=== PATIENT | female | born 1980 | race African-American/Black ===

== ENCOUNTER 2017-04-11 19:28 | Day surgery (SDC) | payer BC, MEDICAID ==
[2017-04-11] MEDS ORDERED: KETOROLAC TROMETHAMINE INJ/PF 30 MG/1 ML SDV IV ONE (19:38)
[2017-04-11] MEDS ORDERED: NORMAL SALINE 1000 ML 1,000 ML IV ONE (19:38)
--- NOTE | 2017-04-11 19:46 | ER Document Report ---
ED Medical Screen (RME) - General Chief Complaint: Flank Pain Stated Complaint: FLANK PAIN Time Seen by Provider: 04/11/17 19:35 TRAVEL OUTSIDE OF THE [place] IN LAST 30 DAYS: No - HPI Patient complains to provider of: Abdominal pain vomiting diarrhea at 2 PM - Related Data Allergies/Adverse Reactions: iodine Allergy (Verified 04/11/17 19:32) Past Medical History - Past Medical History Cardiac Medical History: Denies: Hx Congestive Heart Failure, Hx DVT, Hx Heart Attack, Hx Hypercholesterolemia, Hx Hypertension, Hx Pulmonary Embolism Pulmonary Medical History: Denies: Hx Asthma, Hx COPD Neurological Medical History: Denies: Hx Seizures Endocrine Medical History: Denies: Hx Diabetes Mellitus Type 1, Hx Diabetes Mellitus Type 2, Hx Hyperthyroidism, Hx Hypothyroidism Renal/ Medical History: Reports: Hx Kidney Stones. Denies: Hx Peritoneal Dialysis GI Medical History: Denies: Hx Cirrhosis, Hx Gastroesophageal Reflux Disease, Hx Hepatitis Musculoskeltal Medical History: Reports Hx Arthritis Psychiatric Medical History: Denies: Hx Depression Infectious Medical History: Denies: Hx Hepatitis Past Surgical History: Reports: Hx Tubal Ligation - Subsequent reversal of same. - Immunizations Hx Diphtheria, Pertussis, Tetanus Vaccination: No Review of Systems - Review of Systems Gastrointestinal: Abdominal pain, Nausea, Vomiting Physical Exam - Vital signs Vitals: Temp Pulse Resp BP Pulse Ox 98.1 F 90 22 H 158/71 H 96 04/11/17 19:33 04/11/17 19:33 04/11/17 19:33 04/11/17 19:33 04/11/17 19:33 - Cardiovascular Rhythm: Regular Heart sounds: Normal auscultation Course - Vital Signs Vital signs: Temp Pulse Resp BP Pulse Ox 98.1 F 90 22 H 158/71 H 96 04/11/17 19:33 04/11/17 19:33 04/11/17 19:33 04/11/17 19:33 04/11/17 19:33
[2017-04-11 20:13] LABS: APPEARANCE,URINE SLIGHTLY-CLOUDY; BILIRUBIN,URINE NEGATIVE (NEGATIVE); GLUCOSE, URINE NEGATIVE (NEGATIVE); KETONES,URINE NEGATIVE (NEGATIVE); LEUKOCYTE ESTERASE,URINE NEGATIVE (NEGATIVE); NITRITE,URINE NEGATIVE (NEGATIVE); PROTEIN,URINE NEGATIVE (NEGATIVE); URINE SPECIFIC GRAVITY 1.016
[2017-04-11 20:25] LABS: ABSOLUTE BASOPHILS # (AUTO) 0.1 10^3/uL (0.0-0.2); ABSOLUTE EOSINOPHILS # (AUTO) 0.5 10^3/uL (0.0-0.6); ABSOLUTE LYMPHOCYTES (AUTO) 3.3 10^3/uL (0.5-4.7); ABSOLUTE MONOCYTES (AUTO) 1.1 10^3/uL (0.1-1.4); ABSOLUTE NEUT (AUTO) 5.4 10^3/uL (1.7-8.2); BASOPHILS % (AUTO) 0.6 % (0-2); EOSINOPHILS % (AUTO) 4.8 % (0-6); HEMATOCRIT 35.9 % (36.0-47.0); HEMOGLOBIN 11.8 g/dL (12.0-15.5); HGB HCT DIFFERENCE -0.5; LYMPHOCYTES % (AUTO) 31.7 % (13-45); MEAN CORPUSCULAR HEMOGLOBIN 31.3 pg (27.0-33.4); MEAN CORPUSCULAR HGB CONC 32.9 g/dL (32.0-36.0); MEAN CORPUSCULAR VOLUME 95 fl (80-97); MONOCYTES % (AUTO) 10.3 % (3-13); RED BLOOD COUNT 3.78 10^6/uL (3.72-5.28); RED CELL DISTRIBUTION WIDTH 13.4 % (11.5-14.0); SEGMENTED NEUTROPHILS % (AUTO) 52.6 % (42-78); WHITE BLOOD COUNT 10.3 10^3/uL (4.0-10.5)
[2017-04-11 20:34] LABS: BACTERIA,URINE 4+ /HPF; TRICHOMONAS,URINE PRESENT
[2017-04-11 20:41] LABS: ALANINE AMINOTRANSFERASE 15 U/L (9-52); ALBUMIN 3.7 g/dL (3.5-5.0); ALKALINE PHOSPHATASE 58 U/L (38-126); ANION GAP 10 (5-19); ASPARTATE AMINO TRANSFERASE 20 U/L (14-36); BILIRUBIN,DIRECT 0.2 mg/dL (0.0-0.4); BILIRUBIN,TOTAL 0.3 mg/dL (0.2-1.3); BLOOD UREA NITROGEN 9 mg/dL (7-20); CALCIUM 8.9 mg/dL (8.4-10.2); CARBON DIOXIDE 22 mmol/L (22-30); CHLORIDE 104 mmol/L (98-107); CREATININE RESULT 0.64 mg/dL (0.52-1.25); GLUCOSE 155 mg/dL (75-110); LIPASE 53.8 U/L (23-300); POTASSIUM 3.7 mmol/L (3.6-5.0); SODIUM 135.8 mmol/L (137-145)
--- NOTE | 2017-04-11 20:57 | ER Document Report ---
ED General - General Chief Complaint: Flank Pain Stated Complaint: FLANK PAIN Time Seen by Provider: 04/11/17 19:35 Mode of Arrival: Ambulatory Information source: Patient, POA - Power of Adjutant General Notes: 36-year-old female history of kidney stones presents with complaints of flank pain. Patient admits nausea denies any fevers or chills denies any urinary complaints. Patient notes diarrhea and right lower quadrant abdominal pain associated starting at 2 PM today TRAVEL OUTSIDE OF THE [place] IN LAST 30 DAYS: No - HPI Onset: Just prior to arrival Onset/Duration: Sudden Quality of pain: Cramping Severity: Mild Pain Level: 1 Associated symptoms: Diarrhea, Nausea, Vomiting Exacerbated by: Denies Relieved by: Denies Similar symptoms previously: No Recently seen / treated by doctor: No - Related Data Allergies/Adverse Reactions: iodine Allergy (Verified 04/11/17 19:32) Past Medical History - Social History Smoking Status: Never Smoker Cigarette use (# per day): No Chew tobacco use (# tins/day): No Smoking Education Provided: No Family History: None, DM, Hypertension - Past Medical History Cardiac Medical History: Denies: Hx Congestive Heart Failure, Hx DVT, Hx Heart Attack, Hx Hypercholesterolemia, Hx Hypertension, Hx Pulmonary Embolism Pulmonary Medical History: Denies: Hx Asthma, Hx COPD Neurological Medical History: Denies: Hx Seizures Endocrine Medical History: Denies: Hx Diabetes Mellitus Type 1, Hx Diabetes Mellitus Type 2, Hx Hyperthyroidism, Hx Hypothyroidism Renal/ Medical History: Reports: Hx Kidney Stones. Denies: Hx Peritoneal Dialysis GI Medical History: Denies: Hx Cirrhosis, Hx Gastroesophageal Reflux Disease, Hx Hepatitis Musculoskeltal Medical History: Reports Hx Arthritis Psychiatric Medical History: Denies: Hx Depression Infectious Medical History: Denies: Hx Hepatitis Past Surgical History: Reports: Hx Tubal Ligation - Immunizations Hx Diphtheria, Pertussis, Tetanus Vaccination: No Review of Systems - Review of Systems Notes: REVIEW OF SYSTEMS: CONSTITUTIONAL : Denies fever, chills, or sweats. Denies recent illness. EENT: Denies eye, ear, throat, or mouth pain or symptoms. Denies nasal or sinus congestion or discharge. Denies throat, tongue, or mouth swelling or difficulty swallowing. CARDIOVASCULAR: Denies chest pain. Denies palpitations or racing or irregular heart beat. Denies ankle edema. RESPIRATORY: Denies cough, cold, or chest congestion. Denies shortness of breath, difficulty breathing, or wheezing. GASTROINTESTINAL: Admits to abdominal pain rating from the flank to the groin GENITOURINARY: Denies difficulty urinating, painful urination, burning, frequency, blood in urine, or discharge. FEMALE GENITOURINARY: Denies vaginal bleeding, heavy or abnormal periods, irregular periods. Denies vaginal discharge or odor. MUSCULOSKELETAL: Denies back or neck pain or stiffness. Denies joint pain or swelling. SKIN: Denies rash, lesions or sores. HEMATOLOGIC : Denies easy bruising or bleeding. LYMPHATIC: Denies swollen, enlarged glands. NEUROLOGICAL: Denies confusion or altered mental status. Denies passing out or loss of consciousness. Denies dizziness or lightheadedness. Denies headache. Denies weakness or paralysis or loss of use of either side. Denies problems with gait or speech. Denies sensory loss, numbness, or tingling. Denies seizures. PSYCHIATRIC: Denies anxiety or stress. Denies depression, suicidal ideation, or homicidal ideation. ALL OTHER SYSTEMS REVIEWED AND NEGATIVE. PHYSICAL EXAMINATION: GENERAL: Well-appearing, well-nourished and in no acute distress. HEAD: Atraumatic, normocephalic. EYES: Pupils equal round and reactive to light, extraocular movements intact, conjunctiva are normal. ENT: Nares patent, oropharynx clear without exudates. Moist mucous membranes. NECK: Normal range of motion, supple without lymphadenopathy LUNGS: Breath sounds clear to auscultation bilaterally and equal. No wheezes rales or rhonchi. HEART: Regular rate and rhythm without murmurs ABDOMEN: Soft, nontender, nondistended abdomen. No guarding, no rebound. No masses appreciated. Female : deferred Musculoskeletal: Normal range of motion, no pitting or edema. No cyanosis. NEUROLOGICAL: Cranial nerves grossly intact. Normal speech, normal gait. Normal sensory, motor exams PSYCH: Normal mood, normal affect. SKIN: Warm, Dry, normal turgor, no rashes or lesions noted. Dictation was performed using Smeet recognition software Physical Exam - Vital signs Vitals: Temp Pulse Resp BP Pulse Ox 98.1 F 90 22 H 158/71 H 96 04/11/17 19:33 04/11/17 19:33 04/11/17 19:33 04/11/17 19:33 04/11/17 19:33 Course - Re-evaluation Re-evalutation: 04/11/17 20:[address] pending to rule out kidney stone versus any other life-threatening intra-abdominal abnormality 04/12/17 04:07 Lab work noted a quant of 30,000, this means the patient is actually rather than having a kidney stone. She was sent for an ultrasound and no IUP was noted. I spoke with the radiologist regarding these findings. Given these results I believe the patient is having an ectopic , I immediately called the [employer] on-call and patient is admitted to her service - Vital Signs Vital signs: Temp Pulse Resp BP Pulse Ox 98.2 F 70 18 130/82 H 98 04/12/17 01:24 04/12/17 01:24 04/12/17 01:24 04/12/17 01:24 04/12/17 01:24 - Laboratory Result Diagrams: 04/11/17 20:10 04/11/17 20:10 Laboratory results interpreted by me: 04/11/17 04/11/17 04/11/17 19:50 20:10 20:10 Hgb 11.8 L Hct 35.9 L Sodium 135.8 L Glucose 155 H Beta HCG, Quant 43175.00 H Urine Blood SMALL H Urine Urobilinogen 2.0 H Critical Care Note - Critical Care Note Total time excluding time spent on procedures (mins): 28 Comments: minutes of critical care time spent in direct contact evaluating and reevaluating the patient, treating symptoms, reviewing labs and studies and speaking with family and consultants excluding any procedures Discharge - Discharge Clinical Impression: Ectopic Qualifiers: Location of ectopic : tubal Intrauterine status: without intrauterine Qualified Code(s): O00.10 - Tubal without intrauterine Abdominal pain Qualifiers: Abdominal location: generalized Qualified Code(s): R10.84 - Generalized abdominal pain Condition: Fair Disposition: ADMITTED INPATIENT Admitting Provider: [facility] Admitted: Surgical Floor
--- NOTE | 2017-04-11 23:02 | RADIOLOGY REPORT (SQ) ---
EXAM DESCRIPTION: U/S OB TRANSVAGINAL W/O DOP COMPLETED DATE/TIME: 04/11/2017 10:41 pm REASON FOR STUDY: + preg abd pain COMPARISON: None. TECHNIQUE: Transvaginal static and realtime grayscale images acquired of the pelvis. Additional eliana cted spectral and color Doppler images recorded. All images stored on PACs. [facility]70,815 LIMITATIONS: None. FINDINGS: UTERUS: No masses. No anomalies. GESTATIONAL SAC: No intrauterine gestational sac is demonstrated. YOLK SAC: No. POLE: No. RIGHT ADNEXA: Normal ovary with normal vascular flow. No adnexal free fluid. The 2.7 x 3.0 x 3.0 cm fluid collection is seen adjacent to the right ovary ; while no yolk sac or fe martin pole is present, this is concerning for an extrauterine LEFT ADNEXA: Normal ovary with normal vascular flow. No adnexal free fluid. No adnexal masses. FREE FLUID: Moderate free fluid is demonstrated OTHER: No other significant finding. IMPRESSION: No intrauterine is demonstrated. A 2.7 x 3.0 x 3.0 cm fluid collection with a thick rim is seen adjacent to the right ovary; given quantitative HCG of 31,000, this is concerning for an extrauterine . Trimester of : First - 0 to 13 weeks. COMMENT: Pertinent findings on the imaging study reported as a CRITICAL RESULT to ANNIE INTERIANO DO at22:54 on 04/11/2017. Category of Critical Result: Possible ectopic TECHNICAL DOCUMENTATION: JOB ID: [id number] [employer]- All Rights Reserved
--- NOTE | 2017-04-12 01:46 | PDOC H&P ---
History of Present Illness Admission Date/PCP: 04/11/17 23:28 Patient complains of: abdominal pain with nausea since 1700. thouht it was kidney stones. had tubal reanastomosis in 2011. this is first since procedure. History of Present Illness: SEGUNDO CEVALLOS is a 36 year old female Past Medical History Cardiac Medical History: Denies: Congestive Heart Failure, DVT, Myocardial Infarction, Hyperlipidema, Hypertension, Pulmonary Embolism Pulmonary Medical History: Denies: Asthma, Chronic Obstructive Pulmonary Disease (COPD) Neurological Medical History: Denies: Seizures Endocrine Medical History: Denies: Diabetes Mellitus Type 1, Diabetes Mellitus Type 2, Hyperthyroidism, Hypothyroidism GI Medical History: Denies: Cirrhosis, Gastroesophageal Reflux Disease, Hepatitis Musculoskeltal Medical History: Reports: Arthritis Psychiatric Medical History: Denies: Depression Past Surgical History Past Surgical History: Reports: Tubal Ligation, Other - tubal reanastomosis Social History Information Source: Patient Lives with: Family Smoking Status: Current Every Day Smoker Cigarettes Packs Per Day: 1 Frequency of Alcohol Use: None Hx Recreational Drug Use: No Drugs: None Hx Prescription Drug Abuse: No Family History Family History: None, DM, Hypertension Parental Family History Reviewed: Yes Children Family History Reviewed: Yes Sibling(s) Family History Reviewed.: Yes Medication/Allergy Home Medications: Aspirin [Ecotrin 81 mg EC Tablet] 81 mg PO DAILY #30 tabec 08/23/16 Medroxyprogesterone Acetate [Depo-Provera] 150 mg IM 08/23/16 Allergies/Adverse Reactions: iodine Allergy (Verified 04/11/17 19:32) Review of Systems Constitutional: PRESENT: as per HPI Gastrointestinal: PRESENT: as per HPI, abdominal pain Physical Exam - Physical Exam Vital Signs: Temp Pulse Resp BP Pulse Ox 97.7 F 57 L 16 134/85 H 100 04/12/17 00:38 04/12/17 00:38 04/12/17 00:38 04/12/17 00:38 04/12/17 00:38 General appearance: PRESENT: no acute distress, cooperative GI/Abdominal exam: PRESENT: guarding, soft, tenderness Result Impressions: Obstetrics Ultrasound 04/11/17 21:28 IMPRESSION: No intrauterine is demonstrated. A 2.7 x 3.0 x 3.0 cm fluid collection with a thick rim is seen adjacent to the right ovary; given quantitative HCG of 31,000, this is concerning for an extrauterine . Trimester of : First - 0 to 13 weeks. Assessment & Plan - Diagnosis (1) Abdominal pain Qualifiers: Abdominal location: generalized Qualified Code(s): R10.84 - Generalized abdominal pain (2) Ectopic Qualifiers: Location of ectopic : tubal Intrauterine status: without intrauterine Qualified Code(s): O00.10 - Tubal without intrauterine Is this a current diagnosis for this admission?: Yes - Time Time Spent: 30 to 50 Minutes Critical Time spent with patient: Less than 15 minutes Anticipated discharge: Home Within: within 24 hours - Inpatient Certification Based on my medical assessment, after consideration of the patient's comorbidities, presenting symptoms, or acuity I expect that the services needed warrant INPATIENT care.: Yes I certify that my determination is in accordance with my understanding of Medicare's requirements for reasonable and necessary INPATIENT services [42 CFR 412.3e].: Yes Medical Necessity: Need Close Monitoring Due to Risk of Patient Decompensation, Need for Pain Control, Need for Surgery
[2017-04-12] MEDS ORDERED: MORPHINE SULFATE 10 MG/ML INJ IV ONE ×2 (02:00→06:45)
[2017-04-12] MEDS ORDERED: RINGERS SOLUTION,LACTATED 1,000 ML IV PRN (02:19)
[2017-04-12] MEDS ORDERED: CEFAZOLIN 2 GM/D5W RTU 2 GM/50 ML RTUPB IV PRN (02:20)
[2017-04-12] MEDS ORDERED: HYDROMORPHONE HCL INJ/PF 2 MG/ML AMPULE ONE (02:27)
[2017-04-12] MEDS ORDERED: ACETAMINOPHEN 100 ML IV ONE (02:28)
[2017-04-12] MEDS ORDERED: FENTANYL CITRATE INJ/PF 100 MCG/2 ML AMPUL ONE (02:28)
[2017-04-12] MEDS ORDERED: MIDAZOLAM 2 MG/2 ML INJ ONE (02:28)
[2017-04-12] MEDS ORDERED: PROPOFOL INJ 200 MG/20 ML VIAL IV ONE (02:28)
[2017-04-12] MEDS ORDERED: KETAMINE HCL INJ 500 MG/10 ML VIAL ONE (02:29)
[2017-04-12] MEDS ORDERED: DEXMEDETOMIDINE INJ 80 MCG/20 ML VIAL IV ONE (02:29)
[2017-04-12] MEDS ORDERED: FAMOTIDINE INJ/PF 20 MG/2 ML SDV IV PRN (03:07)
[2017-04-12] MEDS ORDERED: BUPIVACAINE HCL 0.25 % INJ/PF (2.5 MG/1 ML) 30 ML VIAL ONE (03:08)
[2017-04-12] MEDS ORDERED: CEFAZOLIN INJ 1 GM VIAL ONE (03:08)
[2017-04-12] MEDS ORDERED: FENTANYL CITRATE INJ/PF 100 MCG/2 ML AMPUL IV PRN ×3 (04:00)
[2017-04-12] MEDS ORDERED: DIPHENHYDRAMINE HCL 50 MG/ML VIAL IV PRN (04:00)
--- NOTE | 2017-04-12 05:19 | OPERATIVE REPORT E ---
Operative Report NAME: SEGUNDO CEVALLOS : 1980 AGE: 36Y DATE OF SURGERY: 04/12/2016 ROOM: 206 PREOPERATIVE DIAGNOSIS: Ectopic . POSTOPERATIVE DIAGNOSIS: Ectopic . SURGEON: DALTON LICONA M.D. ANESTHESIA: Dr. Clark with general. FINDINGS: Adhesions of bilateral fallopian tubes. The ectopic was obviously located in the right fallopian tube. ESTIMATED BLOOD LOSS: 20 mL. COMPLICATIONS: None. PROCEDURE: Diagnostic laparoscopy with right salpingectomy. PROCEDURE IN DETAIL: The patient was taken to the operating room, prepared and draped in a normal sterile fashion. In the dorsal lithotomy position under sterile conditions, an in-and-out catheterization was performed of approximately 10 mL of clear urine. A sterile speculum was then placed in the vagina and a Hulka clamp was placed through the cervix for uterine manipulation without difficulty. The speculum was removed and the gloves were changed. Attention was turned to the upper portion of the case. An umbilical skin incision was made with an 11 blade. This was carried through to the underlying layer of fascia with a Hemostat. The attempt to enter the peritoneal cavity with a Veress needle was unsuccessful. Therefore, a cutdown procedure was performed and the peritoneal cavity was entered sharply. A 5 mm trocar was then placed and the camera was introduced and the abdomen was insufflated with approximately 2 liters of CO2 gas. The above findings were noted. After, the patient was placed in Trendelenburg and the uterus was manipulated. Under direct visualization, a 5 mm port was placed in the left lower quadrant and an 11 mm port was placed in the right lower quadrant for instrument passing. The right fallopian tube was located and the ectopic was identified. The left fallopian tube was inspected and found to be somewhat twisted, but otherwise intact and there were some worsening adhesions around the left fallopian tube as well. The right fallopian tube was stented up with a pair of atraumatic graspers the LigaSure was introduced and at the beginning of the fimbriated end nearest the ovary, the LigaSure was used to transect the fallopian tube from the ovary and following the mesosalpinx to the uterine fundus, the fallopian tube was transected using the LigaSure until it was completely freed. The atraumatic grasper was then removed and an EndoCatch bag was placed through the 11 mm port and the specimen was then bagged in the EndoCatch using the grasper through the other port. Then the specimen was then removed without difficulty. The abdomen was inspected and suctioned, irrigated as best we could. The two lower ports were then removed under direct visualization. The abdomen was then deflated through the umbilical port without difficulty. All 3 skin incisions were then closed with 4-0 Vicryl. The patient tolerated the procedure well. Sponge, lap and needle counts were correct x2. Patient was taken to recovery in stable condition. DICTATING PHYSICIAN: DALTON LICONA M.D. [id number] PHY#: [id number] ID: [id number] JOB#: [id number] ACCT: [id number] cc:DALTON LICONA M.D. >
[2017-04-12] MEDS ORDERED: OXYCODONE-ACETAMINOPHEN 5-325 MG TABLET PO PRN (05:46)
[2017-04-12] MEDS ORDERED: IBUPROFEN 800 MG TABLET PO PRN (05:47)
[2017-04-12] MEDS ORDERED: KETOROLAC TROMETHAMINE INJ/PF 30 MG/1 ML SDV IV ONE (06:00)
[2017-04-12] MEDS ORDERED: METRONIDAZOLE 500 MG TABLET PO ONE (10:06)
--- NOTE | 2017-04-12 10:34 | PDOC PROGRESS REPORT ---
Subjective Progress Note for:: 04/12/17 Subjective:: pt doing well s/p L/S right salpinectomy. reviewed dx of trich and reviewed treatment. She is tolerating po intake and voiding w/o difficulty. Physical Exam - Physical Exam Vital Signs: Temp Pulse Resp BP Pulse Ox 97.5 F 56 L 18 134/74 H 100 04/12/17 09:30 04/12/17 09:30 04/12/17 09:30 04/12/17 09:30 04/12/17 09:30 Intake & Output 04/11/17 04/12/17 04/13/17 06:59 06:59 06:59 Intake Total 900 Output Total 40 Balance 860 General appearance: PRESENT: no acute distress, well-developed, well-nourished Head exam: PRESENT: atraumatic, normocephalic Respiratory exam: PRESENT: clear to auscultation sarita, symmetrical, unlabored Cardiovascular exam: PRESENT: RRR. ABSENT: diastolic murmur, rubs, systolic murmur GI/Abdominal exam: PRESENT: normal bowel sounds, soft, tenderness - approp ttp over trocar sites s/p surgery. ABSENT: distended, guarding, mass, organolmegaly , rebound Rectal exam: PRESENT: deferred Extremities exam: PRESENT: full ROM. ABSENT: calf tenderness, clubbing, pedal edema Neurological exam: PRESENT: alert, awake, oriented to person, oriented to place , oriented to time, oriented to situation, CN II-XII grossly intact. ABSENT: motor sensory deficit Psychiatric exam: PRESENT: agitated Skin exam: PRESENT: dry, intact, warm. ABSENT: cyanosis, rash Result Impressions: Obstetrics Ultrasound 04/11/17 21:28 IMPRESSION: No intrauterine is demonstrated. A 2.7 x 3.0 x 3.0 cm fluid collection with a thick rim is seen adjacent to the right ovary; given quantitative HCG of 31,000, this is concerning for an extrauterine . Trimester of : First - 0 to 13 weeks. Assessment & Plan - Diagnosis (1) Trichomonal cervicitis Is this a current diagnosis for this admission?: YesPlan: Trich dx reviewed with pt and . Reviewed needs to be treated and she needs in office test of cure in 4-6wks. No intercourse until after both pt and partner treated and she has a good SARAI. Rx for treatment given in hospital. WIll await GC/CT results and if pos will treat for those as well. (2) Ectopic Qualifiers: Location of ectopic : tubal Intrauterine status: without intrauterine Qualified Code(s): O00.10 - Tubal without intrauterine Is this a current diagnosis for this admission?: YesPlan: doing well s/p L/S RIght Salpingectomy. (pt had TUbal reanastomosis in 2011). She will f/u in office in 1 wks - Time Time Spent with patient: 15-24 minutes Critical Time spent with patient: Less than 15 minutes Medications reviewed and adjusted accordingly: Yes Anticipated discharge: Home Within: within 24 hours - Inpatient Certification Based on my medical assessment, after consideration of the patient's comorbidities, presenting symptoms, or acuity I expect that the services needed warrant INPATIENT care.: Yes I certify that my determination is in accordance with my understanding of Medicare's requirements for reasonable and necessary INPATIENT services [42 CFR 412.3e].: Yes Medical Necessity: Need for IV Antibiotics - once GC/CT result returns and treatment given if needed then ok to discharge Post Hospital Care: D/C Supervisor Grinding Documentation
[2017-04-12] MEDS ORDERED: NEOSTIGMINE METHYLSULFATE 10 MG/10 ML VIAL ONE (11:46)
[2017-04-12] MEDS ORDERED: GLYCOPYRROLATE INJ 0.4 MG/2 ML VIAL ONE (11:46)
[2017-04-12] MEDS ORDERED: LIDOCAINE 2% INJ-PF (20 MG/ML) 10 ML AMPUL ONE (11:46)
[2017-04-12] MEDS ORDERED: DEXAMETHASONE SOD PHOSPHATE INJ 4 MG/1 ML VIAL ONE (11:46)
[2017-04-12] MEDS ORDERED: SUCCINYLCHOLINE CHLORIDE INJ 200 MG/10 ML VIAL ONE (11:46)
[2017-04-12] MEDS ORDERED: ONDANSETRON HCL INJ/PF 4 MG/2 ML SDV ONE (11:46)
[2017-04-12] MEDS ORDERED: ROCURONIUM BROMIDE INJ 50 MG/5 ML VIAL IV ONE (11:46)
[2017-04-12 11:56] VITALS: BP 134/71
[2017-04-12 12:04] LABS: CHLAM PCR NOT DETECTED (NOT DETECT)
--- NOTE | 2017-04-12 12:59 | PDOC DISCHARGE SUMMARY ---
General - Admit/Disc Date/PCP Admission Date/Primary Care Provider: 04/11/17 23:28 Discharge Date: 04/12/17 - Discharge Diagnosis (1) Ectopic Is this a current diagnosis for this admission?: YesSummary: s/p L/S Right salpingectomy. (2) Trichomonal cervicitis Is this a current diagnosis for this admission?: YesSummary: treatment given. GC/CHlam negative. - Additional Information Resuscitation Status: Full Code Discharge Diet: As Tolerated Discharge Activity: Activity As Tolerated, No Driving, Pelvic Rest Home Medications: Doxycycline Hyclate 100 mg PO BID #28 tablet. 04/12/17 Ibuprofen [Motrin 800 mg Tablet] 800 mg PO Q8HP PRN #90 tablet 04/12/17 Oxycodone HCl/Acetaminophen [Percocet 5-325 mg Tablet] 1 tab PO Q4HP PRN #30 tablet 04/12/17 History of Present Illness Patient complains of: Pt presented to ER with pelvic pain and probable ectopic on US with h/o Bilateral Tubal REanastomosis. History of Present Illness: SEGUNDO CEVALLOS is a 36 year old female Hospital Course Hospital Course: Admitted and taken to OR for L/S removal of ectopic and Right salpingectomy. Care advanced postop and meets criteria for discharge Physical Exam - Physical Exam Vital Signs: Temp Pulse Resp BP Pulse Ox 97.5 F 56 L 18 134/74 H 100 04/12/17 09:30 04/12/17 09:30 04/12/17 09:30 04/12/17 09:30 04/12/17 09:30 Intake & Output 04/11/17 04/12/17 04/13/17 06:59 06:59 06:59 Intake Total 900 Output Total 40 Balance 860 General appearance: PRESENT: no acute distress, well-developed, well-nourished Head exam: PRESENT: atraumatic, normocephalic Respiratory exam: PRESENT: clear to auscultation sarita, symmetrical, unlabored. ABSENT: tachypnea Cardiovascular exam: PRESENT: RRR. ABSENT: diastolic murmur, rubs, systolic murmur GI/Abdominal exam: PRESENT: normal bowel sounds, soft, tenderness - approp postop ttp. ABSENT: distended, guarding, mass, organolmegaly, rebound Rectal exam: PRESENT: deferred Extremities exam: PRESENT: full ROM. ABSENT: calf tenderness, clubbing, pedal edema Neurological exam: PRESENT: alert, awake, oriented to person, oriented to place , oriented to time, oriented to situation, CN II-XII grossly intact. ABSENT: motor sensory deficit Psychiatric exam: PRESENT: appropriate affect, normal mood. ABSENT: homicidal ideation, suicidal ideation Skin exam: PRESENT: dry, intact, warm. ABSENT: cyanosis, rash Result Impressions: Obstetrics Ultrasound 04/11/17 21:28 IMPRESSION: No intrauterine is demonstrated. A 2.7 x 3.0 x 3.0 cm fluid collection with a thick rim is seen adjacent to the right ovary; given quantitative HCG of 31,000, this is concerning for an extrauterine . Trimester of : First - 0 to 13 weeks. Status: Imported from PACS Plan Discharge Plan: Discharge to home, F/u in office 1wks. Time Spent: Less than 30 Minutes
== END 2017-04-12 13:15 | disposition home or self-care (01) ==
LOC: ER 19:28 → UNDOADMIN 23:28 → EH 23:28 → 2N 04-12 00:25 → ER 04-12 02:00 → OROUT 04-12 02:00 → 2N 04-12 02:00 → OROUT 04-12 13:15 → UNDODISIN 04-12 13:15
PROVIDERS: ATTEND Obstetrics & Gynecology
PROC: 0UT54ZZ Resection of Right Fallopian Tube, Percutaneous Endoscopic Approach (ICD-10-PCS; 2017-04-12)
PROC: 10T24ZZ Resection of Products of Conception, Ectopic, Percutaneous Endoscopic Approach (ICD-10-PCS; principal; 2017-04-12 03:30)
DX: O00.10 Tubal pregnancy without intrauterine pregnancy (principal); F17.210 Nicotine dependence, cigarettes, uncomplicated; A59.09 Other urogenital trichomoniasis; M19.90 Unspecified osteoarthritis, unspecified site; E66.9 Obesity, unspecified; Z68.41 Body mass index [BMI] 40.0-44.9, adult
CPT/HCPCS: 59151; 99285; 96361; 96374; 36415; 87086; 84702; 83690; 85025; 80053; 81001; 87491; 87591; 88305 ×2; 76817; J2250; J0690; J3490 ×3; J1100; J3010; J1885 ×2; J2270; J0330; J2405; J7030; J2704; J0131; 840; J1170

== ENCOUNTER → 2017-07-03 | Outpatient (CLI) | payer BC ==
--- NOTE | 2017-07-03 16:02 | RADIOLOGY REPORT (SQ) ---
EXAM DESCRIPTION: HYSTEROSALPINGOGRAM; HYSTERO CATH/INJECTION COMPLETED DATE/TIME: 07/03/2017 3:46 pm REASON FOR STUDY: PERSONAL HISTORY OF OTHER COMPLICATIONS OF , CHILDBIRTH AND Z87.59 PERSO NAL HISTORY OF COMP OF PREG, CHLDBRTH AND THE PU COMPARISON: None. PROCEDURE: PRE-PROCEDURE: Procedure was explained to the patient. She was told to expect cramping du ring the procedure, and possible spotting post procedure. PROCEDURE: The cervix was prepped in sterile fashion. Under direct visual inspection, the cervix was cannulated with the hysterosalpingogram catheter and contrast injected. TECHNIQUE: Temporal fluoroscopic images acquired during the procedure stored to PACS. FLUOROSCOPY TIME: 26 seconds 14 images saved to PACS. LIMITATIONS: None. FINDINGS: UTERUS: No identified anomalies. No synechia. RIGHT ADNEXA: Filling of the proximal fallopian tube. No filling more distally. No free spill. LEFT ADNEXA: Filling of the proximal fallopian tube. No filling more distally. No free spill. POST PROCEDURE: The patient tolerated the procedure with no adverse effects. IMPRESSION: Bilateral occluded fallopian tubes. COMMENT: Faith Espinoza RT was present during the entire procedure. Quality ID [id number]: Final reports for procedures using fluoroscopy that document radiation exposure yohannes izabella, or exposure time and number of fluorographic images (if radiation exposure indices are not avail able) TECHNICAL DOCUMENTATION: JOB ID: [id number] [employer] [facility]- All Rights Reserved
== END ==
LOC: RAD 13:37
PROVIDERS: ATTEND Student in an Organized Health Care Education/Training Program
DX: Z87.59 Personal history of other complications of pregnancy, childbirth and the puerperium (principal)
CPT/HCPCS: 58340; 74740

== ENCOUNTER 2019-06-07 13:59 | Emergency (ER) | payer BC ==
[2019-06-07] MEDS ORDERED: ONDANSETRON HCL INJ/PF 4 MG/2 ML SDV IV ONE (14:33)
[2019-06-07] MEDS ORDERED: MORPHINE SULFATE 10 MG/ML INJ IV ONE (14:33)
[2019-06-07] MEDS ORDERED: NORMAL SALINE 1000 ML 1,000 ML IV ONE (14:33)
[2019-06-07 14:57] LABS: ABSOLUTE EOSINOPHILS # (AUTO) 0.1 10^3/uL (0.0-0.6); ABSOLUTE LYMPHOCYTES (AUTO) 2.5 10^3/uL (0.5-4.7); ABSOLUTE MONOCYTES (AUTO) 1.2 10^3/uL (0.1-1.4); ABSOLUTE NEUT (AUTO) 2.8 10^3/uL (1.7-8.2); BASOPHILS % (AUTO) 0.5 % (0-2); EOSINOPHILS % (AUTO) 1.1 % (0-6); HEMATOCRIT 37.2 % (36.0-47.0); HEMOGLOBIN 12.7 g/dL (12.0-15.5); LYMPHOCYTES % (AUTO) 37.5 % (13-45); MEAN CORPUSCULAR HGB CONC 34.2 g/dL (32.0-36.0); MEAN CORPUSCULAR VOLUME 94 fl (80-97); MONOCYTES % (AUTO) 18.8 % (3-13); PLATELET COUNT 266 10^3/uL (150-450); RED BLOOD COUNT 3.98 10^6/uL (3.72-5.28); SEGMENTED NEUTROPHILS % (AUTO) 42.1 % (42-78); TOTAL CELLS COUNTED % (AUTO) 100 %; WHITE BLOOD COUNT 6.6 10^3/uL (4.0-10.5)
--- NOTE | 2019-06-07 15:02 | ER Document Report ---
ED General - General Chief Complaint: Abdominal Pain Stated Complaint: ABDOMINAL PAIN Time Seen by Provider: 06/07/19 14:31 Primary Care Provider: LAUREN DIAZ MD [Primary Care Provider] - Follow up as needed Mode of Arrival: Ambulatory Information source: Patient TRAVEL OUTSIDE OF THE [place] IN LAST 30 DAYS: No - HPI Notes: Patient presents with approximately 4 days of right upper quadrant abdominal pain. It does radiate to her back. Nothing makes it better or worse. She has had nausea and vomiting. She has had decreased appetite. She has had no significant change of stools or urine. States she does not believe she is currently . She states she went and saw her primary care physician for this pain today and they ordered an ultrasound. She states the ultrasound showed no evidence of gallstones but she was tender so they referred her here to the emergency department. This pain does radiate to her back. It is moderate in intensity. It is an aching sensation. - Related Data Allergies/Adverse Reactions: iodine Allergy (Verified 06/07/19 14:03) Past Medical History - General Information source: Patient - Social History Smoking Status: Current Every Day Smoker Frequency of alcohol use: Occasional Drug Abuse: None Family History: None, DM, Hypertension - Past Medical History Cardiac Medical History: Denies: Hx Congestive Heart Failure, Hx DVT, Hx Heart Attack, Hx Hypercholesterolemia, Hx Hypertension, Hx Pulmonary Embolism Pulmonary Medical History: Denies: Hx Asthma, Hx COPD Neurological Medical History: Denies: Hx Seizures Endocrine Medical History: Denies: Hx Diabetes Mellitus Type 1, Hx Diabetes Mellitus Type 2, Hx Hyperthyroidism, Hx Hypothyroidism Renal/ Medical History: Reports: Hx Kidney Stones. Denies: Hx Peritoneal Dialysis GI Medical History: Denies: Hx Cirrhosis, Hx Gastroesophageal Reflux Disease, Hx Hepatitis Musculoskeletal Medical History: Reports Hx Arthritis Psychiatric Medical History: Denies: Hx Depression Infectious Medical History: Denies: Hx Hepatitis Past Surgical History: Reports: Hx Tubal Ligation, Other - tubal reanastomosis - Immunizations Hx Diphtheria, Pertussis, Tetanus Vaccination: No Review of Systems - Review of Systems Constitutional: Malaise. denies: Chills, Fever Cardiovascular: denies: Chest pain, Palpitations Respiratory: denies: Cough, Short of breath -: Yes All other systems reviewed and negative Physical Exam - Vital signs Vitals: Temp Pulse Resp BP Pulse Ox 98.6 F 85 15 141/87 H 98 06/07/19 14:04 06/07/19 14:04 06/07/19 14:04 06/07/19 14:04 06/07/19 14:04 Interpretation: Normal - General General appearance: Appears well, Alert - HEENT Head: Normocephalic, Atraumatic Eyes: Normal Pupils: PERRL - Respiratory Respiratory status: No respiratory distress Chest status: Nontender Breath sounds: Normal Chest palpation: Normal - Cardiovascular Rhythm: Regular Heart sounds: Normal auscultation Murmur: No - Abdominal Inspection: Normal Distension: No distension Bowel sounds: Normal Tenderness: Tender - Patient is tender to palpation in the right upper quadrant. Organomegaly: No organomegaly - Back Back: Normal, Nontender - Extremities General upper extremity: Normal inspection, Nontender, Normal color, Normal ROM, Normal temperature General lower extremity: Normal inspection, Nontender, Normal color, Normal ROM, Normal temperature, Normal weight bearing. No: Edy's sign - Neurological Neuro grossly intact: Yes Cognition: Normal Orientation: AAOx4 [place] Coma Scale Eye Opening: Spontaneous [place] Coma Scale Verbal: Oriented [place] Coma Scale Motor: Obeys Commands [place] Coma Scale Total: 15 Speech: Normal Motor strength normal: LUE, RUE, LLE, RLE Sensory: Normal - Psychological Associated symptoms: Normal affect, Normal mood - Skin Skin Temperature: Warm Skin Moisture: Dry Skin Color: Normal Course - Re-evaluation Re-evalutation: 06/07/19 18:14 Patient reexamined she still is having right upper quadrant pain and decreased appetite. However repeat ultrasound is unremarkable. Laboratories are unremarkable. And vital signs are unremarkable. I did call and talk with the justin french automation sales manager. He asked the patient keep her appointment in the morning at their clinic. - Vital Signs Vital signs: Temp Pulse Resp BP Pulse Ox 98.6 F 85 15 141/87 H 98 06/07/19 14:04 06/07/19 14:04 06/07/19 14:04 06/07/19 14:04 06/07/19 14:04 - Laboratory Result Diagrams: 06/07/19 14:40 06/07/19 14:40 Laboratory results interpreted by me: 06/07/19 06/07/19 06/07/19 14:40 14:40 14:40 Monocytes % 18.8 H Sodium 136.2 L Urine Ketones TRACE H Urine Blood MODERATE H 06/07/19 18:15 Laboratory 06/07/19 06/07/19 06/07/19 14:40 14:40 14:40 WBC 6.6 RBC 3.98 Hgb 12.7 Hct 37.2 MCV 94 MCH 32.0 MCHC 34.2 RDW 13.0 Plt Count 266 Seg Neutrophils % 42.1 Lymphocytes % 37.5 Monocytes % 18.8 H Eosinophils % 1.1 Basophils % 0.5 Absolute Neutrophils 2.8 Absolute Lymphocytes 2.5 Absolute Monocytes 1.2 Absolute Eosinophils 0.1 Absolute Basophils 0.0 Sodium 136.2 L Potassium 3.9 Chloride 101 Carbon Dioxide 27 Anion Gap 8 BUN 9 Creatinine 0.73 Est GFR ( Amer) > 60 Est GFR (Non-Af Amer) > 60 Glucose 96 Calcium 9.1 Total Bilirubin 0.3 Direct Bilirubin 0.2 Neonat Total Bilirubin Not Reportable Neonat Direct Bilirubin Not Reportable Neonat Indirect Bili Not Reportable AST 24 ALT 14 Alkaline Phosphatase 61 Total Protein 6.9 Albumin 3.9 Lipase 32.4 Urine Color YELLOW Urine Appearance CLOUDY Urine pH 6.0 Ur Specific [place] 1.023 Urine Protein NEGATIVE Urine Glucose (UA) NEGATIVE Urine Ketones TRACE H Urine Blood MODERATE H Urine Nitrite NEGATIVE Urine Bilirubin NEGATIVE Urine Urobilinogen NEGATIVE Ur Leukocyte Esterase NEGATIVE Urine WBC (Auto) 2 Urine RBC (Auto) 13 Squamous Epi Cells Auto 24 Urine Mucus (Auto) MANY Urine Ascorbic Acid NEGATIVE Urine HCG, Qual NEGATIVE - Diagnostic Test Radiology reviewed: Image reviewed, Reports reviewed Radiology results interpreted by me: 06/07/19 18:14 Abdomen Ultrasound 06/07/19 16:04 IMPRESSION: NORMAL RIGHT UPPER QUADRANT ULTRASOUND. Discharge - Discharge Clinical Impression: Biliary colic Obesity Qualifiers: Obesity type: unspecified obesity type Obesity classification: adult class 3 (BMI >= 40) Serious obesity comorbidity presence: without serious comorbidity Body mass index: BMI 40.0-44.9 Qualified Code(s): E66.01 - Morbid (severe) obesity due to excess calories; Z68.41 - Body mass index (BMI) 40.0-44.9, adult Condition: Stable Disposition: HOME, SELF-CARE Instructions: Abdominal Pain ([facility]) Additional Instructions: Please follow-up in the morning with surgery as scheduled Prescriptions: Hydrocodone/Acetaminophen [[place] 5-325 mg Tablet] 1 tab PO Q6 PRN 3 Days #12 tablet PRN Reason: Referrals: LAUREN DIAZ MD [Primary Care Provider] - Follow up as needed
[2019-06-07 15:10] LABS: APPEARANCE,URINE CLOUDY; BILIRUBIN,URINE NEGATIVE (NEGATIVE); COLOR,URINE YELLOW; GLUCOSE, URINE NEGATIVE (NEGATIVE); KETONES,URINE TRACE mg/dL (NEGATIVE); LEUKOCYTE ESTERASE,URINE NEGATIVE (NEGATIVE); NITRITE,URINE NEGATIVE (NEGATIVE); PROTEIN,URINE NEGATIVE (NEGATIVE); URINE SPECIFIC GRAVITY 1.023; UROBILINOGEN,URINE NEGATIVE mg/dL (<2.0)
[2019-06-07 15:18] LABS: ALBUMIN 3.9 g/dL (3.5-5.0); ALKALINE PHOSPHATASE 61 U/L (38-126); ANION GAP 8 (5-19); ASPARTATE AMINO TRANSFERASE 24 U/L (14-36); BILIRUBIN,DIRECT 0.2 mg/dL (0.0-0.4); BILIRUBIN,TOTAL 0.3 mg/dL (0.2-1.3); BLOOD UREA NITROGEN 9 mg/dL (7-20); CALCIUM 9.1 mg/dL (8.4-10.2); CARBON DIOXIDE 27 mmol/L (22-30); CHLORIDE 101 mmol/L (98-107); GLUCOSE 96 mg/dL (75-110); POTASSIUM 3.9 mmol/L (3.6-5.0); TOTAL PROTEIN 6.9 g/dL (6.3-8.2)
--- NOTE | 2019-06-07 17:49 | RADIOLOGY REPORT (SQ) ---
EXAM DESCRIPTION: U/S ABDOMEN LIMITED W/O DOP COMPLETED DATE/TIME: 06/07/2019 5:37 pm REASON FOR STUDY: ruq pain COMPARISON: None. TECHNIQUE: Dynamic and static grayscale images acquired of the abdomen and recorded on PACS. Additio nal selected color Doppler and spectral images recorded. LIMITATIONS: None. FINDINGS: PANCREAS: No masses. Visualized pancreatic duct normal caliber. LIVER: No masses. Echotexture normal. LIVER VASCULATURE: Normal directional flow of the main portal vein and hepatic veins. GALLBLADDER: No stones. Normal wall thickness. No pericholecystic fluid. ULTRASOUND-DETECTED ZIMMER'S SIGN: Negative. INTRAHEPATIC DUCTS AND COMMON DUCT: CBD and intrahepatic ducts normal caliber. No filling defects. INFERIOR VENA CAVA: Normal flow. AORTA: No aneurysm. RIGHT KIDNEY: Normal size 11.9 cm. Normal echogenicity. No solid or suspicious masses. No hydronephr osis. No calcifications. PERITONEAL AND RIGHT PLEURAL SPACE: No ascites or effusions. OTHER: No other significant findings. IMPRESSION: NORMAL RIGHT UPPER QUADRANT ULTRASOUND. TECHNICAL DOCUMENTATION: JOB ID: [id number] [employer]- All Rights Reserved Reading location - IP/workstation name: [email or web address]
[2019-06-07 19:10] VITALS: BP 166/72
== END 2019-06-07 19:10 | disposition home or self-care (01) ==
LOC: ER 13:59
DX: K80.50 Calculus of bile duct without cholangitis or cholecystitis without obstruction (principal); E66.01 Morbid (severe) obesity due to excess calories; Z68.41 Body mass index [BMI] 40.0-44.9, adult; R10.11 Right upper quadrant pain; R10.811 Right upper quadrant abdominal tenderness; R11.2 Nausea with vomiting, unspecified; R63.0 Anorexia; F17.200 Nicotine dependence, unspecified, uncomplicated; Z87.442 Personal history of urinary calculi
CPT/HCPCS: 36415; 83690; 85025; 81025; 80053; 81001; 76705; J2270; J2405; J7030; 99284

== ENCOUNTER 2019-06-21 07:51 | Day surgery (SDC) | payer BC ==
--- NOTE | 2019-06-14 19:02 | EKG REPORT ---
SEVERITY:- ABNORMAL ECG - SINUS BRADYCARDIA 55 NONSPECIFIC T ABNORMALITIES, ANTERIOR LEADS : Confirmed by: Jose G Henriquez MD 14-Jun-2019 19:02:11
[~2019-06-21 07:51] MED LIST: PROPOFOL INJ 200 MG/20 ML VIAL IV ONE
--- NOTE | 2019-06-21 10:35 | Discharge Summary ---
Discharge Summary (SDC) - Discharge Final Diagnosis: Gastritis, duodenitis, hiatal hernia. Date of Surgery: 06/21/19 Discharge Date: 06/21/19 Condition: Stable Treatment or Instructions: Discharge home. Diet as tolerated. Activity: Nonstrenuous. Follow-up with me in 2 weeks. Avoid caffeine, nicotine, NSAIDs, steroids, soda pop, alcohol, and stimulants (like phentermine). Continue Zantac and Carafate as previously prescribed. Referrals: LAUREN DIAZ MD [Primary Care Provider] - Discharge Diet: As Tolerated Respiratory Treatments at Home: Deep Breathing/Coughing, Incentive Spirometer Discharge Activity: Balance Activity w/Rest Home Care Assistance: None Needed Report the Following to Your Physician Immediately: Shortness of Breath, Nausea, Vomiting, Increase in Pain, Yellow Skin, Fever over 101 Degrees, Unusual Bleeding, Redness
--- NOTE | 2019-06-21 10:38 | Operative Report ---
Nonrecallable Operative Report DATE OF SURGERY: 06/21/19 PREOPERATIVE DIAGNOSIS: Abdominal pain, constant POSTOPERATIVE DIAGNOSIS: 1. Severe gastritis. 2. Duodenitis. 3. Small, sliding hiatal hernia. OPERATION: EGD with biopsy. SURGEON: MERISSA LEE ANESTHESIA: LMAC TISSUE REMOVED OR ALTERED: 1. Antrum. 2. Duodenal bulb. 3. Distal esophagus. COMPLICATIONS: None apparent ESTIMATED BLOOD LOSS: Minimal PROCEDURE: Procedure in detail: After informed consent was obtained, the patient was brought to the operating room and laid in the left lateral decubitus position. The endoscope was passed down the oropharynx, down the esophagus, and into the stomach. The stomach was insufflated with air. There was noted to be severe gastritis throughout the gastric body and antrum. The scope was pushed through the pylorus, and into the first portion of the duodenum. The first portion of the duodenum was acutely inflamed. Biopsy was taken in the duodenal bulb. The scope was pushed into the second portion of the duodenum, which appeared normal. The scope was withdrawn back into the gastric antrum, where biopsy was taken to rule out H. pylori infection. The scope was then retroflexed in the gastric body. A small, sliding hiatal hernia was identified. The scope was pulled up into the distal esophagus, where biopsy was taken at the Z line. The scope was then withdrawn up the remainder of the esophagus. The remainder of the esophagus was smooth in contour without masses, lesions, ulcerations, or other abnormalities. The scope was removed from the patient's oropharynx, and the procedure was concluded. All sponge, instrument, and needle counts were correct x2. Condition: Stable.
[2019-06-21] MEDS ORDERED: SUCRALFATE 1 GM TABLET PO ONE (11:30)
[2019-06-21 11:41] VITALS: BP 147/98
== END 2019-06-21 11:35 | disposition home or self-care (01) ==
LOC: OROUT 07:51
PROVIDERS: ATTEND Surgery
DX: K29.50 Unspecified chronic gastritis without bleeding (principal); K29.80 Duodenitis without bleeding; K44.9 Diaphragmatic hernia without obstruction or gangrene; E07.9 Disorder of thyroid, unspecified; E11.9 Type 2 diabetes mellitus without complications; F17.210 Nicotine dependence, cigarettes, uncomplicated; Z79.899 Other long term (current) drug therapy; E66.9 Obesity, unspecified; Z68.41 Body mass index [BMI] 40.0-44.9, adult
CPT/HCPCS: 43239; 93005; 82962; 81025; 88342 ×2; 88305 ×2; 93010; 00731; J2704; 731

== ENCOUNTER 2019-07-20 13:13 | Emergency (ER) | payer BC ==
[2019-07-20] MEDS ORDERED: ASPIRIN 81 MG TABLET, CHEWABLE PO ONE (13:25)
[2019-07-20] MEDS ORDERED: ADENOSINE INJ/PF 6 MG/2 ML SDV IV ONE (13:34)
[2019-07-20 14:02] LABS: ABSOLUTE EOSINOPHILS # (AUTO) 0.6 10^3/uL (0.0-0.6); ABSOLUTE LYMPHOCYTES (AUTO) 4.4 10^3/uL (0.5-4.7); ABSOLUTE MONOCYTES (AUTO) 0.9 10^3/uL (0.1-1.4); ABSOLUTE NEUT (AUTO) 5.7 10^3/uL (1.7-8.2); BASOPHILS % (AUTO) 0.3 % (0-2); EOSINOPHILS % (AUTO) 4.8 % (0-6); HEMATOCRIT 37.3 % (36.0-47.0); HEMOGLOBIN 12.7 g/dL (12.0-15.5); LYMPHOCYTES % (AUTO) 37.8 % (13-45); MEAN CORPUSCULAR HEMOGLOBIN 31.6 pg (27.0-33.4); MEAN CORPUSCULAR VOLUME 93 fl (80-97); PLATELET COUNT 325 10^3/uL (150-450); RED BLOOD COUNT 4.01 10^6/uL (3.72-5.28); RED CELL DISTRIBUTION WIDTH 13.9 % (11.5-14.0); SEGMENTED NEUTROPHILS % (AUTO) 49.1 % (42-78); TOTAL CELLS COUNTED % (AUTO) 100 %; WHITE BLOOD COUNT 11.6 10^3/uL (4.0-10.5)
[2019-07-20 14:13] LABS: ALKALINE PHOSPHATASE 71 U/L (38-126); ANION GAP 10 (5-19); ASPARTATE AMINO TRANSFERASE 18 U/L (14-36); BILIRUBIN,DIRECT 0.2 mg/dL (0.0-0.4); BILIRUBIN,TOTAL 0.4 mg/dL (0.2-1.3); BLOOD UREA NITROGEN 10 mg/dL (7-20); CALCIUM 9.7 mg/dL (8.4-10.2); CARBON DIOXIDE 22 mmol/L (22-30); CHLORIDE 105 mmol/L (98-107); CREATINE KINASE 63 U/L (30-135); GLUCOSE 186 mg/dL (75-110); POTASSIUM 3.9 mmol/L (3.6-5.0); TOTAL PROTEIN 7.1 g/dL (6.3-8.2)
[2019-07-20 14:23] LABS: CREATINE KINASE MB 0.28 ng/mL (<4.55)
[2019-07-20 14:24] LABS: TROPONIN I < 0.012 ng/mL
--- NOTE | 2019-07-20 15:39 | ER Document Report ---
ED General - General Chief Complaint: Chest Pain Stated Complaint: CHEST PAIN Time Seen by Provider: 07/20/19 13:29 Primary Care Provider: LAUREN DIAZ MD [Primary Care Provider] - Follow up as needed TRAVEL OUTSIDE OF THE [place] IN LAST 30 DAYS: No - HPI Notes: 39-year-old female who presents with SVT and chest discomfort. Patient has remote history of having a fast heart rate but is states she has not been diagnosed with SVT. Was driving when she had sudden onset of a feeling of her heart beating fast in her chest and substernal chest pressure. Nonradiating. No history of thyroid dysfunction, review of her records show an admission a couple of years ago with work-up showing sinus tachycardia but no overt arrhythmia. Nonradiating pain. No heavy use of alcohol. No use of cocaine or methamphetamine. No use of dietary or herbal supplements. Moderate intensity, nonradiating. Sudden onset. No other modifying factors, no other associated symptoms, no other provocative or palliative factors. She took a half dose of phentermine today - Related Data Allergies/Adverse Reactions: iodine Allergy (Verified 06/14/19 11:05) shellfish derived Allergy (Verified 06/14/19 11:05) Past Medical History - Social History Smoking Status: Unknown if Ever Smoked Family History: None, DM, Hypertension Patient has suicidal ideation: No Patient has homicidal ideation: No - Medical History Notes: Her history of tachycardia, morbid obesity, diabetes - Past Medical History Cardiac Medical History: Denies: Hx Congestive Heart Failure, Hx Coronary Artery Disease, Hx DVT, Hx Heart Attack, Hx Hypercholesterolemia, Hx Hypertension, Hx Pulmonary Embolism Pulmonary Medical History: Denies: Hx Asthma, Hx Bronchitis, Hx COPD, Hx Pneumonia Neurological Medical History: Denies: Hx Cerebrovascular Accident, Hx Seizures Endocrine Medical History: Denies: Hx Diabetes Mellitus Type 1, Hx Diabetes Mellitus Type 2, Hx Hyperthyroidism, Hx Hypothyroidism Renal/ Medical History: Reports: Hx Kidney Stones. Denies: Hx Peritoneal Dialysis GI Medical History: Denies: Hx Cirrhosis, Hx Gastroesophageal Reflux Disease, Hx Hepatitis Musculoskeletal Medical History: Reports Hx Arthritis Psychiatric Medical History: Denies: Hx Depression Infectious Medical History: Denies: Hx Hepatitis Past Surgical History: Reports: Hx Tubal Ligation, Other - tubal reanastomosis - Immunizations Hx Diphtheria, Pertussis, Tetanus Vaccination: Yes Review of Systems - Review of Systems Notes: Review of systems as in the history of present illness, otherwise negative x 10 systems. Physical Exam - Vital signs Vitals: Pulse Ox 97 07/20/19 13:25 - Notes Notes: General: Well developed . HEENT: Normocephalic, atraumatic. Pupils equal round reactive to light. No JVD . Chest: No trauma. Respiratory: Good air exchange, normal excursion. Cardiac: Regular rhythm. No murmurs or gallops. Tachycardic Abdomen: Soft, benign. Nondistended. Nontender. Back: No asymmetry or gross abnormality. Motor: Grossly normal power and tone. Neurologic: Alert, nonfocal. Cranial nerves II-12 are intact. Sensation intact. Vascular: Well perfused. Normal peripheral pulses. Skin: No petechiae or purpura. Course - Re-evaluation Re-evalutation: 07/20/19 15:37 39-year-old female presents with narrow complex tachycardia consistent with SVT. Labs are drawn, resuscitation initiated. Patient received 12 mg of adenosine with immediate conversion to a sinus rhythm. Symptoms have completely resolved. Patient's initial labs reviewed including CBC which is unremarkable, chemistries are unremarkable with exception of modestly elevated glucose. Troponin normal. Patient's repeat ECG is unremarkable. She remains pain-free throughout her ED course. Plan is to proceed with delta troponin rule out and discharged home. I have offered and recommended admission for observation and rule out but she has declined, understands risk of delayed diagnosis of SC, permanent morbidity or . Twelve-lead #2 is obtained shows sinus rhythm, normal rate, normal QRS, nonspecific ST-T changes, no evidence of acute ischemia. 07/20/19 15:39 - Vital Signs Vital signs: Temp Pulse Resp BP Pulse Ox 98.1 F 23 H 153/101 H 100 07/20/19 13:58 07/20/19 14:05 07/20/19 13:58 07/20/19 14:05 - Laboratory Result Diagrams: 07/20/19 13:35 07/20/19 13:35 Laboratory results interpreted by me: 07/20/19 07/20/19 13:35 13:35 WBC 11.6 H Glucose 186 H - EKG Interpretation by Co EKG shows normal: Intervals, QRS Complexes Rate: Tachycardia Rhythm: SVT Discharge - Discharge Clinical Impression: SVT (supraventricular tachycardia) Condition: Stable Disposition: HOME, SELF-CARE Instructions: Chest Pain of Unclear Cause ([facility]), Paroxysmal Supraventricular Tachycardia ([facility]) Additional Instructions: See her primary care doctor over the next 24 to 48 hours. Referrals: LAUREN DIAZ MD [Primary Care Provider] - Follow up as needed
[2019-07-20 17:07] VITALS: BP 167/109
--- NOTE | 2019-07-20 19:56 | EKG REPORT ---
SEVERITY:- ABNORMAL ECG - JUNCTIONAL TACHYCARDIA : Confirmed by: Isamar Hill MD 20-Jul-2019 19:56:28
--- NOTE | 2019-07-20 19:56 | EKG REPORT ---
SEVERITY:- NORMAL ECG - SINUS RHYTHM : Confirmed by: Isamar Hill MD 20-Jul-2019 19:56:22
== END 2019-07-20 17:07 | disposition home or self-care (01) ==
LOC: ER 13:13
DX: I47.1 Supraventricular tachycardia (principal); R07.89 Other chest pain; Z91.013 Allergy to seafood
CPT/HCPCS: 93005; 99285; 96374; 36415; 82553; 82550; 85025; 80053; 84484; 93010; J0153

== ENCOUNTER 2019-10-26 18:18 | Emergency (ER) | payer BC ==
[2019-10-26] MEDS ORDERED: KETOROLAC TROMETHAMINE INJ/PF 30 MG/1 ML SDV IV ONE (19:18)
--- NOTE | 2019-10-26 19:25 | ER Document Report ---
ED Medical Screen (RME) - General Chief Complaint: Flank Pain Stated Complaint: RIGHT SIDE FLANK PAIN Time Seen by Provider: 10/26/19 19:11 Primary Care Provider: LAUREN LEWIS MD [Primary Care Provider] - Follow up as needed Mode of Arrival: Wheelchair Information source: Patient Notes: 39-year-old female presents emergency department with complaints of right lower quad pain. She reports her boss Dr. Lewis sent her for an ultrasound today. Dr. Junior was unable to visualize her appendix. Patient reports pain since Thursday. Reports decreased appetite. Denies fever vomiting diarrhea. Reports pain with movement. Patient reports she has had a CT with contrast without problems. I have greeted and performed a rapid initial assessment of this patient. A comprehensive ED assessment and evaluation of the patient, analysis of test results and completion of the medical decision making process will be conducted by additional ED providers. TRAVEL OUTSIDE OF THE [place] IN LAST 30 DAYS: No - Related Data Allergies/Adverse Reactions: iodine Allergy (Verified 10/26/19 19:12) shellfish derived Allergy (Verified 10/26/19 19:12) Past Medical History - Past Medical History Cardiac Medical History: Denies: Hx Congestive Heart Failure, Hx Coronary Artery Disease, Hx DVT, Hx Heart Attack, Hx Hypercholesterolemia, Hx Hypertension, Hx Pulmonary Embolism Pulmonary Medical History: Denies: Hx Asthma, Hx Bronchitis, Hx COPD, Hx Pneumonia Neurological Medical History: Denies: Hx Cerebrovascular Accident, Hx Seizures Endocrine Medical History: Denies: Hx Diabetes Mellitus Type 1, Hx Diabetes Mellitus Type 2, Hx Hyperthyroidism, Hx Hypothyroidism Renal/ Medical History: Reports: Hx Kidney Stones. Denies: Hx Peritoneal Dialysis GI Medical History: Denies: Hx Cirrhosis, Hx Gastroesophageal Reflux Disease, Hx Hepatitis Musculoskeltal Medical History: Reports Hx Arthritis Psychiatric Medical History: Denies: Hx Depression Infectious Medical History: Denies: Hx Hepatitis Past Surgical History: Reports: Hx Tubal Ligation, Other - tubal reanastomosis - Immunizations Hx Diphtheria, Pertussis, Tetanus Vaccination: Yes Physical Exam - Vital signs Vitals: Temp Pulse Resp BP Pulse Ox 99.5 F 90 20 149/102 H 100 10/26/19 18:37 10/26/19 18:37 10/26/19 18:37 10/26/19 18:37 10/26/19 18:37 Course - Vital Signs Vital signs: Temp Pulse Resp BP Pulse Ox 99.5 F 90 20 149/102 H 100 10/26/19 18:37 10/26/19 18:37 10/26/19 18:37 10/26/19 18:37 10/26/19 18:37 Doctor's Discharge - Discharge Referrals: LAUREN LEWIS MD [Primary Care Provider] - Follow up as needed
[2019-10-26 20:04] LABS: ABSOLUTE BASOPHILS # (AUTO) 0.1 10^3/uL (0.0-0.2); ABSOLUTE EOSINOPHILS # (AUTO) 0.4 10^3/uL (0.0-0.6); ABSOLUTE MONOCYTES (AUTO) 1.2 10^3/uL (0.1-1.4); ABSOLUTE NEUT (AUTO) 9.4 10^3/uL (1.7-8.2); BASOPHILS % (AUTO) 0.5 % (0-2); HEMATOCRIT 37.9 % (36.0-47.0); HEMOGLOBIN 12.7 g/dL (12.0-15.5); LYMPHOCYTES % (AUTO) 21.4 % (13-45); MEAN CORPUSCULAR HEMOGLOBIN 31.3 pg (27.0-33.4); MEAN CORPUSCULAR HGB CONC 33.6 g/dL (32.0-36.0); MEAN CORPUSCULAR VOLUME 93 fl (80-97); MONOCYTES % (AUTO) 8.5 % (3-13); PLATELET COUNT 290 10^3/uL (150-450); RED BLOOD COUNT 4.06 10^6/uL (3.72-5.28); RED CELL DISTRIBUTION WIDTH 13.5 % (11.5-14.0); SEGMENTED NEUTROPHILS % (AUTO) 66.6 % (42-78); TOTAL CELLS COUNTED % (AUTO) 100 %; WHITE BLOOD COUNT 14.1 10^3/uL (4.0-10.5)
[2019-10-26 20:22] LABS: ALBUMIN 4.1 g/dL (3.5-5.0); ALKALINE PHOSPHATASE 67 U/L (38-126); ANION GAP 7 (5-19); ASPARTATE AMINO TRANSFERASE 20 U/L (14-36); BILIRUBIN,DIRECT 0.2 mg/dL (0.0-0.4); BILIRUBIN,TOTAL 0.4 mg/dL (0.2-1.3); BLOOD UREA NITROGEN 9 mg/dL (7-20); CALCIUM 9.7 mg/dL (8.4-10.2); CARBON DIOXIDE 29 mmol/L (22-30); CHLORIDE 102 mmol/L (98-107); GLUCOSE 117 mg/dL (75-110); POTASSIUM 3.8 mmol/L (3.6-5.0); TOTAL PROTEIN 7.6 g/dL (6.3-8.2)
[2019-10-26 20:39] LABS: APPEARANCE,URINE SLIGHTLY-CLOUDY; BILIRUBIN,URINE NEGATIVE (NEGATIVE); COLOR,URINE YELLOW; GLUCOSE, URINE NEGATIVE (NEGATIVE); KETONES,URINE NEGATIVE (NEGATIVE); LEUKOCYTE ESTERASE,URINE NEGATIVE (NEGATIVE); NITRITE,URINE NEGATIVE (NEGATIVE); PROTEIN,URINE NEGATIVE (NEGATIVE); URINE SPECIFIC GRAVITY 1.018
[2019-10-26] MEDS ORDERED: ACETAMINOPHEN 325 MG TABLET PO ONE (21:09)
[2019-10-26] MEDS ORDERED: NORMAL SALINE 1000 ML 1,000 ML IV ONE (23:56)
[2019-10-26] MEDS ORDERED: MORPHINE SULFATE 10 MG/ML INJ IV ONE (23:56)
[2019-10-26] MEDS ORDERED: ONDANSETRON HCL INJ/PF 4 MG/2 ML SDV IV ONE (23:56)
--- NOTE | 2019-10-26 23:58 | ER Document Report ---
ED GI/ - General Chief Complaint: Abdominal Pain Stated Complaint: RIGHT SIDE FLANK PAIN Time Seen by Provider: 10/26/19 19:11 Primary Care Provider: LAUREN DIAZ MD [Primary Care Provider] - Follow up as needed Mode of Arrival: Wheelchair Notes: Patient is a 39-year-old female that comes to the emergency department for chief complaint of right lower abdominal pain. She states that she was feeling some intermittent abdominal pains over the past couple of days but today she started feeling specific pain in the right abdomen, has not eaten anything all day because she has no appetite, and has started becoming nauseated. She states pain is become constant and much sharper. She denies fever/chills, vomiting, she denies any other complaints. She reports a normal bowel movement earlier today. She has had an ectopic with right fallopian tube removal, denies any surgeries otherwise. TRAVEL OUTSIDE OF THE [place] IN LAST 30 DAYS: No - Related Data Allergies/Adverse Reactions: iodine Allergy (Verified 10/26/19 19:12) shellfish derived Allergy (Verified 10/26/19 19:12) Home Medications: no home medications Past Medical History - General Information source: Patient - Social History Smoking Status: Current Every Day Smoker Chew tobacco use (# tins/day): No Frequency of alcohol use: Rare Drug Abuse: None Lives with: Family Family History: None, DM, Hypertension Patient has suicidal ideation: No Patient has homicidal ideation: No - Past Medical History Cardiac Medical History: Denies: Hx Congestive Heart Failure, Hx Coronary Artery Disease, Hx DVT, Hx Heart Attack, Hx Hypercholesterolemia, Hx Hypertension, Hx Pulmonary Embolism Pulmonary Medical History: Denies: Hx Asthma, Hx Bronchitis, Hx COPD, Hx Pneumonia Neurological Medical History: Denies: Hx Cerebrovascular Accident, Hx Seizures Endocrine Medical History: Denies: Hx Diabetes Mellitus Type 1, Hx Diabetes Mellitus Type 2, Hx Hyperthyroidism, Hx Hypothyroidism Renal/ Medical History: Reports: Hx Kidney Stones. Denies: Hx Peritoneal Dialysis GI Medical History: Denies: Hx Cirrhosis, Hx Gastroesophageal Reflux Disease, Hx Hepatitis Musculoskeletal Medical History: Reports Hx Arthritis Psychiatric Medical History: Denies: Hx Depression Infectious Medical History: Denies: Hx Hepatitis Past Surgical History: Reports: Hx Tubal Ligation, Other - tubal reanastomosis - Immunizations Hx Diphtheria, Pertussis, Tetanus Vaccination: Yes Review of Systems - Review of Systems Constitutional: No symptoms reported EENT: No symptoms reported Cardiovascular: No symptoms reported Respiratory: No symptoms reported Gastrointestinal: See HPI Genitourinary: No symptoms reported Female Genitourinary: No symptoms reported Musculoskeletal: No symptoms reported Skin: No symptoms reported Hematologic/Lymphatic: No symptoms reported Neurological/Psychological: No symptoms reported Physical Exam - Vital signs Vitals: Temp Pulse Resp BP Pulse Ox 99.5 F 90 20 149/102 H 100 10/26/19 18:37 10/26/19 18:37 10/26/19 18:37 10/26/19 18:37 10/26/19 18:37 - Notes Notes: GENERAL: Alert, interacts well. No acute distress. HEAD: Normocephalic, atraumatic. EYES: Pupils equal, round, and reactive to light. Extraocular movements intact. ENT: Oral mucosa moist, tongue midline. Oropharynx unremarkable. Airway patent. NECK: Full range of motion. Supple. Trachea midline. LUNGS: Clear to auscultation bilaterally, no wheezes, rales, or rhonchi. No respiratory distress. HEART: Regular rate and rhythm. No murmur ABDOMEN: Tender in the lower abdomen in the left lower quadrant and especially in the right lower quadrant. There is tenderness over McBurney's point as well and mild tenderness in the right upper quadrant. There is no rigidity, swelling, or rebound tenderness. Bowel sounds are present. GENITOURINARY: Deferred EXTREMITIES: Moves all 4 extremities spontaneously. No edema, normal radial and dorsalis pedis pulses bilaterally. No cyanosis. BACK: no cervical, thoracic, lumbar midline tenderness. No saddle anesthesia, normal distal neurovascular exam. Moves all extremities in full range of motion. NEUROLOGICAL: Alert and oriented x3. Normal speech. Cranial nerves II through XII grossly intact. PSYCH: Normal affect, normal mood. SKIN: Warm, dry, normal turgor. No rashes or lesions noted. Course - Re-evaluation Re-evalutation: On evaluation patient is nontoxic in appearance but she does have tenderness in the lower abdomen. There is tenderness in both the left and lower quadrants but this is worse on the right including over the McBurney's point area. There is mild tenderness in the right upper quadrant but this is minimal by comparison. Vital signs unremarkable. CBC shows leukocytosis at 14,000 with elevation of neutrophils but no bandemia. Chemistry unremarkable. Urine unremarkable. test negative. CT from triage reviewed and shows colitis but normal appendix. Based on patient's slowly progressive symptoms over several days and based on her evaluation today I do suspect this is colitis and not an acute abdomen. There is no abscess or perforation. Patient tolerates p.o. without any difficulty. Discussed results, expectations, treatment, follow-up, and return precautions at length with patient and significant other. They state understanding and agreement. Stable at time of discharge. - Vital Signs Vital signs: Temp Pulse Resp BP Pulse Ox 98.7 F 84 16 134/79 H 99 10/27/19 01:57 10/27/19 01:57 10/27/19 01:57 10/27/19 01:57 10/27/19 01:57 - Laboratory Result Diagrams: 10/26/19 19:50 10/26/19 19:50 Laboratory results interpreted by me: 10/26/19 10/26/19 10/26/19 19:30 19:50 19:50 WBC 14.1 H Absolute Neuts (auto) 9.4 H Glucose 117 H Urine Urobilinogen 2.0 H Discharge - Discharge Clinical Impression: Abdominal pain Qualifiers: Abdominal location: lower abdomen, unspecified Qualified Code(s): R10.30 - Lower abdominal pain, unspecified Condition: Stable Disposition: HOME, SELF-CARE Additional Instructions: Your evaluation is consistent with colitis, an infection in the large intestine. You do have a cyst on the left ovary but this is small and should go away with time. Take the antibiotics as prescribed, rest, drink plenty of fluids, I recommended clear fluid diet the first day, then bland, then slowly progress. Avoid dairy for the next week. Take the provided pain medication if needed, take the nausea medication if needed. Follow-up with primary care. Return if you worsen including spiking fever, severe worsening pain, vomiting, bloody stools, or any other concerning or worsening symptoms. Prescriptions: Ciprofloxacin HCl [Cipro 500 mg Tablet] 500 mg PO BID 7 Days #14 tablet Metronidazole [Flagyl 500 mg Tablet] 500 mg PO TID 7 Days #21 tablet Promethazine HCl [Phenergan 25 mg Tablet] 25 mg PO Q6H PRN #15 tablet PRN Reason: Forms: Return to Work Referrals: DIAZ,LAUREN, MD [Primary Care Provider] - Follow up as needed
--- NOTE | 2019-10-27 01:14 | RADIOLOGY REPORT (SQ) ---
EXAM DESCRIPTION: CT ABDOMEN PELVIS WITH IV CONTRAST COMPLETED DATE/TME: 10/26/2019 19:18 CLINICAL HISTORY: 39 years, Female, RLQ pain, possible appendicitis COMPARISON: Ultrasound age 2019 TECHNIQUE: 795 Images stored on PACS. All CT scanners at this facility use dose modulation, iterative reconstruction, and/or weight based dosing when appropriate to reduce radiation dose to as low as reasonably achievable (ALARA). [facility]: Dose Right [facility]: CareDose [facility]: Dose Right [facility]: Teradose 4D [facility]: Rollad LIMITATIONS: None. FINDINGS: The visualized lung bases are unremarkable. Osseous structures are grossly intact. Fatty infiltrative change to the liver. The spleen, adrenal glands, pancreas, are unremarkable. There is a nonobstructing 5 mm left renal calculus. The kidneys are otherwise unremarkable. The gallbladder is present. Abundant stool in the colon. No gross evidence for bowel obstruction. Normal appendix. Trace of free fluid in the pelvis which is likely physiologic. However, there are nonspecific inflammatory changes in the pelvis with a few adjacent nondilated thick-walled loops of small and large bowel which could reflect nonspecific enteritis/colitis. Probable follicular change to the left adnexa with a cyst measuring 3.0 x 1.8 cm. IMPRESSION: Minor nonspecific inflammatory changes in the lower pelvis with adjacent mildly thick-walled fluid-filled loops of small and large bowel suggesting enteritis and/or colitis. Normal appendix. Trace of free fluid in the pelvis. Fatty infiltrative change to the liver. Benign-appearing adnexal cyst on the left which does not require follow-up. Recommendations for Probably benign adnexal cysts on CT and MR:(1)(2) (benign-appearing cysts on non IV-contrast CT or with one or more of the following complicating factors: angulated margins, not round or oval, poorly visualized such as obscured by artifact or low S/N.) Pre-menopause (<= 50 years if LMP unknown): <=3 cm: No follow-up imaging recommended >3 cm - <=5 cm: US f/u 6-12 weeks >5 cm - <=7 cm: US f/u promptly >7 cm: Consider MR w/IVC or surgical evaluation Early post-menopause (<=5 years from LMP; > 50 years to <= 55 years if LMP unknown): <=3 cm: No follow-up imaging recommended >3 cm - <=7 cm: US f/u promptly >7 cm: Consider MR w/IVC or surgical evaluation Late post-menopause (>5 years from LMP; > 55 years if LMP unknown): <=1 cm: No follow-up imaging recommended >1 cm - <=7 cm: US f/u promptly >7 cm: Consider MR w/IVC or surgical evaluation (1)Recommendations based on the 2013 ACR White Paper for Managing Incidental Adnexal Findings on Abdominal and Pelvic CT and MRI: J Am Rola Radiol 2013;10:675-681 (2)Excludes normal/benign findings such as ovarian calcifications w/o associated non-calcified mass, corpus luteum cyst, previously characterized cyst and cyst with documented stability in size and appearance for >2 years.. TECHNICAL DOCUMENTATION: Quality ID # 436: Final reports with documentation of one or more dose reduction techniques (e.g., Automated exposure control, adjustment of the mA and/or kV according to patient size, use of iterative reconstruction technique) copyright 2011 [employer]- All Rights Reserved
[2019-10-27] MEDS ORDERED: ONDANSETRON ODT 4 MG TAB (6 TAB/ER DISP) PO PRN (01:23)
[2019-10-27] MEDS ORDERED: METRONIDAZOLE 500 MG TABLET PO ONE (01:23)
[2019-10-27] MEDS ORDERED: CIPROFLOXACIN HCL 500 MG TABLET PO ONE (01:23)
[2019-10-27] MEDS ORDERED: HYDROCODONE/ACETAMINOPHEN 5-325 MG (6 TAB/ER DISP) PO PRN (01:23)
[2019-10-27 01:59] VITALS: BP 134/79
== END 2019-10-27 01:57 | disposition home or self-care (01) ==
LOC: ER 18:18
DX: R10.30 Lower abdominal pain, unspecified (principal); R11.0 Nausea; F17.200 Nicotine dependence, unspecified, uncomplicated
CPT/HCPCS: 99284; 96361; 96374; 96375; 36415; 85025; 81025; 80053; 81001; 74177; J2270; J2405; J7030

== ENCOUNTER → 2019-12-26 | Outpatient (CLI) | payer BC ==
[2019-12-26 08:58] LABS: ABSOLUTE BASOPHILS # (AUTO) 0.1 10^3/uL (0.0-0.2); ABSOLUTE EOSINOPHILS # (AUTO) 0.3 10^3/uL (0.0-0.6); ABSOLUTE LYMPHOCYTES (AUTO) 3.4 10^3/uL (0.5-4.7); ABSOLUTE MONOCYTES (AUTO) 0.9 10^3/uL (0.1-1.4); ABSOLUTE NEUT (AUTO) 4.3 10^3/uL (1.7-8.2); BASOPHILS % (AUTO) 0.6 % (0-2); EOSINOPHILS % (AUTO) 3.2 % (0-6); HEMATOCRIT 37.9 % (36.0-47.0); HEMOGLOBIN 12.8 g/dL (12.0-15.5); LYMPHOCYTES % (AUTO) 37.9 % (13-45); MEAN CORPUSCULAR HEMOGLOBIN 31.4 pg (27.0-33.4); MEAN CORPUSCULAR HGB CONC 33.8 g/dL (32.0-36.0); MEAN CORPUSCULAR VOLUME 93 fl (80-97); MONOCYTES % (AUTO) 9.6 % (3-13); PLATELET COUNT 295 10^3/uL (150-450); RED BLOOD COUNT 4.09 10^6/uL (3.72-5.28); RED CELL DISTRIBUTION WIDTH 13.9 % (11.5-14.0); SEGMENTED NEUTROPHILS % (AUTO) 48.7 % (42-78); TOTAL CELLS COUNTED % (AUTO) 100 %; WHITE BLOOD COUNT 8.9 10^3/uL (4.0-10.5)
[2019-12-26 09:20] LABS: ANION GAP 6 (5-19); BLOOD UREA NITROGEN 13 mg/dL (7-20); CALCIUM 9.4 mg/dL (8.4-10.2); CARBON DIOXIDE 27 mmol/L (22-30); CHLORIDE 103 mmol/L (98-107); GLUCOSE 176 mg/dL (75-110); POTASSIUM 4.4 mmol/L (3.6-5.0)
--- NOTE | 2019-12-26 10:19 | RADIOLOGY REPORT (SQ) ---
EXAM DESCRIPTION: U/S ABDOMEN LIMITED W/O DOP COMPLETED DATE/TIME: 12/26/2019 10:00 am REASON FOR STUDY: K21.9 GASTRO-ESOPHAGEAL REFLUX DISEASE WITHOUT DAIXBIATHXJD49.01 MORBID (SE K21.9 GASTRO-ESOPHAGEAL REFLUX DISEASE WITHOUT ESOPHAGITIS E66.01 MORBID (SEVERE) OBESITY DUE TO EXCESS C ALORIES COMPARISON: 06/07/2019 TECHNIQUE: Dynamic and static grayscale images acquired of the abdomen and recorded on PACS. Alexiso yadiel selected color Doppler and spectral images recorded. LIMITATIONS: None. FINDINGS: PANCREAS: No masses. Visualized pancreatic duct normal caliber. LIVER: The liver measures 17.5 cm in length, upper limits of normal to slightly prominent in size. No masses. Echotexture normal. LIVER VASCULATURE: Normal directional flow of the main portal vein and hepatic veins. GALLBLADDER: No stones. The gallbladder wall measures 1.7 mm, normal wall thickness. No pericholecys tic fluid. ULTRASOUND-DETECTED ZIMMER'S SIGN: Negative. INTRAHEPATIC DUCTS AND COMMON DUCT: CBD measures 3.5 mm in diameter, normal. The intrahepatic ducts normal caliber. No filling defects. INFERIOR VENA CAVA: Normal flow. AORTA: No aneurysm. RIGHT KIDNEY: The right kidney measures 11.7 cm in length, normal size. Normal echogenicity. No genevieve id or suspicious masses. No hydronephrosis. No calcifications. PERITONEAL AND RIGHT PLEURAL SPACE: No ascites or effusions. OTHER: No other significant findings. IMPRESSION: 1. NORMAL RIGHT UPPER QUADRANT ULTRASOUND. TECHNICAL DOCUMENTATION: JOB ID: [id number] 2010 [employer]- All Rights Reserved Reading location - IP/workstation name: [email or web address]
--- NOTE | 2019-12-26 11:05 | RADIOLOGY REPORT (SQ) ---
EXAM DESCRIPTION: CHEST PA/LATERAL COMPLETED DATE/TIME: 12/26/2019 10:48 am REASON FOR STUDY: MORBID OBEISITY COMPARISON: 08/22/2016 EXAM PARAMETERS: NUMBER OF VIEWS: two views TECHNIQUE: Digital Frontal and Lateral radiographic views of the chest acquired. RADIATION DOSE: NA LIMITATIONS: none FINDINGS: LUNGS AND PLEURA: No opacities, masses or pneumothorax. No pleural effusion. MEDIASTINUM AND HILAR STRUCTURES: No masses or contour abnormalities. HEART AND VASCULAR STRUCTURES: Heart normal size. No evidence for failure. BONES: No acute findings. HARDWARE: None in the chest. OTHER: No other significant finding. IMPRESSION: NO SIGNIFICANT RADIOGRAPHIC FINDING IN THE CHEST. TECHNICAL DOCUMENTATION: JOB ID: [id number] 2010 [employer]- All Rights Reserved Reading location - IP/workstation name: [email or web address]
--- NOTE | 2019-12-27 11:59 | EKG REPORT ---
SEVERITY:- ABNORMAL ECG - SINUS RHYTHM NONSPECIFIC T ABNORMALITIES, ANT-LAT LEADS : Confirmed by: Ernesto Ace 27-Dec-2019 11:59:28
== END ==
LOC: RAD 09:10
PROVIDERS: ATTEND Surgery
DX: K21.9 Gastro-esophageal reflux disease without esophagitis (principal); E66.01 Morbid (severe) obesity due to excess calories
CPT/HCPCS: 36415; 71046; 76705; 80048; 84443; 85025; 93005; 93010

== ENCOUNTER → 2020-07-31 | Outpatient (CLI) | payer BC ==
--- NOTE | 2020-07-31 15:13 | RADIOLOGY REPORT (SQ) ---
EXAM DESCRIPTION: CT ABD/PELVIS WITH IV ONLY IMAGES COMPLETED DATE/TIME: 07/31/2020 2:31 pm REASON FOR STUDY: E66.01 MORBID (SEVERE) OBESITY DUE TO EXCESS CALORIES, Z98.84 BARIATRIC RACHAEL E66.01 MORBID (SEVERE) OBESITY DUE TO EXCESS CALORIES Z98.84 BARIATRIC SURGERY STATUS I81 PORTAL VEIN TH AUDELIA COMPARISON: 10/27/2019 TECHNIQUE: CT scan of the abdomen and pelvis performed using helical scanning technique with dynamic intravenous contrast injection. No oral contrast. Images reviewed with lung, soft tissue, and bone windows. Reconstructed coronal and sagittal MPR images reviewed. Delayed images for evaluation of the urinary system also acquired. All images stored on PACS. All CT scanners at this facility use dose modulation, iterative reconstruction, and/or weight based d osing when appropriate to reduce radiation dose to as low as reasonably achievable (ALARA). [facility]: Dose Right [facility]: CareDose [facility]: Dose Right [facility]: Teradose 4D [facility]: NetDragon CONTRAST TYPE AND DOSE: contrast/concentration: Isovue 350.00 mmol/ml; Total Contrast Delivered: 100 .0 ml; Total Saline Delivered: 40.0 ml RENAL FUNCTION: None required. The patient is less than 50 years old. RADIATION DOSE: CT Rad equipment meets quality standard of care and radiation dose reduction techniq ues were employed. CTDIvol: 14.7 - 15.7 mGy. DLP: 1510 mGy-cm.. LIMITATIONS: None. FINDINGS: LOWER CHEST: No significant findings. No nodules or infiltrates. LIVER: The liver shows somewhat heterogeneous enhancement on the arterial phase. The portal vein is not well seen. SPLEEN: Normal size. No focal lesions. PANCREAS: No masses. No significant calcifications. No adjacent inflammation or peripancreatic fluid collections. Pancreatic duct not dilated. GALLBLADDER: No identified stones by CT criteria. No inflammatory changes to suggest cholecystitis. ADRENAL GLANDS: No significant masses or asymmetry. RIGHT KIDNEY AND URETER: No solid masses. No significant calcifications. No hydronephrosis or hyd roureter. LEFT KIDNEY AND URETER: No solid masses. No significant calcifications. No hydronephrosis or hydr oureter. AORTA AND VESSELS: No aneurysm. No dissection. Renal arteries, SMA, celiac without stenosis. RETROPERITONEUM: No retroperitoneal adenopathy, hemorrhage or masses. BOWEL AND PERITONEAL CAVITY: Gastric sleeve surgery. No bowel mass. No bowel inflammation. APPENDIX: Normal. PELVIS: No mass. No free fluid. Normal bladder. ABDOMINAL WALL: No masses. No hernias. BONES: No significant or acute findings. OTHER: No other significant finding. IMPRESSION: The portal vein is not well seen. The liver shows heterogeneous enhancement on the donaldo rial phase which can be seen with portal vein thrombosis. Recommend ultrasound evaluation of the por martin vein. TECHNICAL DOCUMENTATION: JOB ID: [id number] Quality ID # 436: Final reports with documentation of one or more dose reduction techniques (e.g., Au tomated exposure control, adjustment of the mA and/or kV according to patient size, use of iterative reconstruction technique) 2010 [employer]- All Rights Reserved Reading location - IP/workstation name: [email or web address]
== END ==
LOC: RAD 13:23
PROVIDERS: ATTEND Surgery
DX: E66.01 Morbid (severe) obesity due to excess calories (principal); Z98.84 Bariatric surgery status; I81 Portal vein thrombosis
CPT/HCPCS: 74177

== ENCOUNTER → 2020-09-17 | Outpatient (CLI) | payer BC ==
--- NOTE | 2020-09-17 09:39 | RADIOLOGY REPORT (SQ) ---
EXAM DESCRIPTION: U/S ABDOMEN LTD W/DOPPLER IMAGES COMPLETED DATE/TIME: 09/17/2020 9:06 am REASON FOR STUDY: I87.9 DISORDER OF VEIN, UNSPECIFIED I87.9 DISORDER OF VEIN, UNSPECIFIED COMPARISON: None. TECHNIQUE: Dynamic and static grayscale images acquired of the liver and recorded on PACS. Additiona l selected color Doppler and spectral images recorded. Selected velocities recorded. Note: Study is not a complete duplex/doppler exam LIMITATIONS: None. FINDINGS: LIVER: Normal in echogenicity and size. No focal lesions are seen. LIVER VASCULATURE: The main portal vein is poorly demonstrated on grayscale images. Doppler images s uggest multiple collaterals in the portal vein bed. This may represent cavernous transformation of t he portal vein. Flow remains antegrade in both the hepatic and portal veins. INTRAHEPATIC DUCTS AND COMMON DUCT: No dilated intrahepatic ducts. CBD diameter normal. ASCITES: None. OTHER: Spleen is normal in size. 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 Flow remains antegrade in the hep atic and portal veins. TECHNICAL DOCUMENTATION: JOB ID: [id number] 2010 [employer]- All Rights Reserved Reading location - IP/workstation name: [email or web address]
== END ==
LOC: RAD 08:25
PROVIDERS: ATTEND Surgery
DX: I87.9 Disorder of vein, unspecified (principal)
CPT/HCPCS: 76705; 93976

== ENCOUNTER 2020-11-05 16:49 | Emergency (ER) | payer BC ==
--- NOTE | 2020-11-05 17:15 | ER Document Report ---
ED Medical Screen (RME) - General Chief Complaint: Nausea/Vomiting Stated Complaint: NAUSEA/VOMITING/DIAHERRA Time Seen by Provider: 11/05/20 17:12 Primary Care Provider: AYLA HYDE MD [Primary Care Provider] - Follow up as needed Mode of Arrival: Ambulatory Information source: Patient Notes: 40-year-old female presented to ED for epigastric pain that started around 1 PM today. She does have a history of a nonfunctional gallbladder. She states that her last ultrasound was about a year or so ago. She states she did have a gastric sleeve in February of last year. She states she does not know if they knew she had a gallbladder problem or not. 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 She states she does not smoke and rarely drinks and does not use any illicit drugs. She is alert oriented respirations regular nonlabored speaking in full sentences. She states she is having nausea and vomiting but she does have gallbladder disease. I have greeted and performed a rapid initial assessment of this patient. A comprehensive ED assessment and evaluation of the patient, analysis of test results and completion of medical decision making process will be conducted by an additional ED providers. TRAVEL OUTSIDE OF THE [place] IN LAST 30 DAYS: No - Related Data Allergies/Adverse Reactions: iodine Allergy (Verified 10/26/19 19:12) shellfish derived Allergy (Verified 10/26/19 19:12) Past Medical History - Social History Frequency of alcohol use: Occasional - Past Medical History Cardiac Medical History: Denies: Hx Congestive Heart Failure, Hx Coronary Artery Disease, Hx DVT, Hx Heart Attack, Hx Hypercholesterolemia, Hx Hypertension, Hx Pulmonary Embolism Pulmonary Medical History: Denies: Hx Asthma, Hx Bronchitis, Hx COPD, Hx Pneumonia Neurological Medical History: Denies: Hx Cerebrovascular Accident, Hx Seizures Endocrine Medical History: Denies: Hx Diabetes Mellitus Type 1, Hx Diabetes Mellitus Type 2, Hx Hyperthyroidism, Hx Hypothyroidism Renal/ Medical History: Reports: Hx Kidney Stones. Denies: Hx Peritoneal Dialysis GI Medical History: Denies: Hx Cirrhosis, Hx Gastroesophageal Reflux Disease, Hx Hepatitis Musculoskeltal Medical History: Reports Hx Arthritis Psychiatric Medical History: Denies: Hx Depression Infectious Medical History: Denies: Hx Hepatitis Past Surgical History: Reports: Hx Tubal Ligation, Other - tubal reanastomosis - Immunizations Hx Diphtheria, Pertussis, Tetanus Vaccination: Yes Physical Exam - Vital signs Vitals: Temp Pulse Resp BP Pulse Ox 97.9 F 88 20 148/87 H 96 11/05/20 16:57 11/05/20 16:57 11/05/20 16:57 11/05/20 16:57 11/05/20 16:57 Course - Vital Signs Vital signs: Temp Pulse Resp BP Pulse Ox 97.9 F 88 20 148/87 H 96 11/05/20 16:57 11/05/20 16:57 11/05/20 16:57 11/05/20 16:57 11/05/20 16:57 Doctor's Discharge - Discharge Referrals: AYLA HYDE MD [Primary Care Provider] - Follow up as needed
[2020-11-05] MEDS ORDERED: ONDANSETRON HCL INJ/PF 4 MG/2 ML SDV IV ONE (17:33)
[2020-11-05] MEDS ORDERED: ONDANSETRON HCL INJ/PF 4 MG/2 ML SDV ONE (17:35)
[2020-11-05 17:38] LABS: ABSOLUTE LYMPHOCYTES (AUTO) 0.5 10^3/uL (0.5-4.7); ABSOLUTE MONOCYTES (AUTO) 0.5 10^3/uL (0.1-1.4); ABSOLUTE NEUT (AUTO) 7.3 10^3/uL (1.7-8.2); BASOPHILS % (AUTO) 0.5 % (0-2); EOSINOPHILS % (AUTO) 0.2 % (0-6); HEMATOCRIT 38.3 % (36.0-47.0); HEMOGLOBIN 13.1 g/dL (12.0-15.5); LYMPHOCYTES % (AUTO) 5.9 % (13-45); MEAN CORPUSCULAR HEMOGLOBIN 32.4 pg (27.0-33.4); MEAN CORPUSCULAR HGB CONC 34.2 g/dL (32.0-36.0); MEAN CORPUSCULAR VOLUME 95 fl (80-97); PLATELET COUNT 171 10^3/uL (150-450); RED BLOOD COUNT 4.04 10^6/uL (3.72-5.28); RED CELL DISTRIBUTION WIDTH 14.7 % (11.5-14.0); SEGMENTED NEUTROPHILS % (AUTO) 87.4 % (42-78); TOTAL CELLS COUNTED % (AUTO) 100 %; WHITE BLOOD COUNT 8.4 10^3/uL (4.0-10.5)
[2020-11-05 18:11] LABS: ALBUMIN 4.2 g/dL (3.5-5.0); ALKALINE PHOSPHATASE 74 U/L (38-126); ANION GAP 6 (5-19); ASPARTATE AMINO TRANSFERASE 31 U/L (14-36); BILIRUBIN,DIRECT 0.1 mg/dL (0.0-0.4); BILIRUBIN,TOTAL 0.5 mg/dL (0.2-1.3); BLOOD UREA NITROGEN 15 mg/dL (7-20); CALCIUM 9.7 mg/dL (8.4-10.2); CARBON DIOXIDE 25 mmol/L (22-30); CHLORIDE 107 mmol/L (98-107); GLUCOSE 124 mg/dL (75-110); POTASSIUM 4.2 mmol/L (3.6-5.0); TOTAL PROTEIN 7.3 g/dL (6.3-8.2)
--- NOTE | 2020-11-05 18:27 | ER Document Report ---
ED GI/ - General Chief Complaint: Nausea/Vomiting Stated Complaint: NAUSEA/VOMITING/DIAHERRA Time Seen by Provider: 11/05/20 17:12 Primary Care Provider: AYLA HYDE MD [ASSOCIATE] - Follow up as needed Mode of Arrival: Ambulatory Notes: CHIEF COMPLAINT: Epigastric discomfort and vomiting today after eating [place] food HPI: 40-year-old female with history of gastric sleeve done in February 2020 at [place] presenting for some epigastric discomfort with multiple episodes of vomiting after eating [place] food that sat in her fridge overnight. Did not throw up yesterday after eating a [place] food. Denies lower abdominal pain denies fever. 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 She is currently on Eliquis for this. Patient states she also was noted to have a nonfunctional gallbladder at that time. ROS: See HPI - all other systems were reviewed and are otherwise negative Constitutional: no fever Eyes: no drainage, no blurred vision ENT: no runny nose, no sore throat Cardiovascular: no chest pain Resp: no SOB, no cough GI: + vomiting, no diarrhea, + abdominal pain : no dysuria Integumentary: no rash Allergy: no hives Musculoskeletal: no extremity pain or swelling Neurological: no numbness/tingling, no weakness MEDICATIONS: I agree with the patient medications as charted by the RN. ALLERGIES: I agree with the allergies as charted by the RN. PAST MEDICAL HISTORY/PAST SURGICAL HISTORY: Reviewed and agree as charted by RN. SOCIAL HISTORY: Reviewed and agree as charted by RN. FAMILY HISTORY: No significant familial comorbid conditions directly related to patient complaint EXAM: Reviewed vital signs as charted by RN. CONSTITUTIONAL: Alert and oriented and responds appropriately to questions. Well-appearing; well-nourished HEAD: Normocephalic; atraumatic EYES: PERRL; Conjunctivae clear, sclerae non-icteric ENT: normal nose; no rhinorrhea; moist mucous membranes; pharynx without lesions noted, no uvula edema or deviation, no tonsillar hypertrophy, phonation normal NECK: Supple without meningismus; non-tender; no cervical lymphadenopathy, no masses CARD: RRR; no murmurs, no clicks, no rubs, no gallops; symmetric distal pulses RESP: Normal chest excursion without splinting or tachypnea; breath sounds clear and equal bilaterally; no wheezes, no rhonchi, no rales, pulse oximetry 98% on room air not hypoxic ABD/GI: Obese, normal bowel sounds; non-distended; soft, mild epigastric tenderness on palpation of the upper abdomen no specific right upper quadrant pain on palpation, no rebound, no guarding; no palpable organomegaly or masses. BACK: The back appears normal and is non-tender to palpation, there is no CVA tenderness EXT: Normal ROM in all joints; non-tender to palpation; no cyanosis, no effusions, no edema SKIN: Normal color for age and race; warm; dry; good turgor; no acute lesions noted NEURO: Moves all extremities equally; Motor and sensory function intact PSYCH: The patient's mood and manner are appropriate. Grooming and personal hygiene are appropriate. MDM: 40-year-old female history of gastric sleeve nonfunctioning gallbladder presenting for vomiting after eating [place] food today. She feels better after Zofran. Lab work does not show any acute abnormalities. She had an ultrasound of the gallbladder ordered by triage process awaiting result. If ultrasound normal anticipate that we will orally challenge the patient to see if she may be discharged home to follow-up with her bariatric surgery team at [place] in 1 to 2 days The patient was evaluated during the global COVID-19 pandemic and that diagnosis was suspected/considered upon their initial presentation. Their evaluation, treatment and testing was consistent with current guidelines for patients who present with complaints or symptoms that may be related to COVID-19 TRAVEL OUTSIDE OF THE [place] IN LAST 30 DAYS: No - Related Data Allergies/Adverse Reactions: iodine Allergy (Verified 10/26/19 19:12) shellfish derived Allergy (Verified 10/26/19 19:12) Past Medical History - General Information source: Patient - Social History Smoking Status: Never Smoker Frequency of alcohol use: Occasional Family History: None, DM, Hypertension - Past Medical History Cardiac Medical History: Denies: Hx Congestive Heart Failure, Hx Coronary Artery Disease, Hx DVT, Hx Heart Attack, Hx Hypercholesterolemia, Hx Hypertension, Hx Pulmonary Embolism Pulmonary Medical History: Denies: Hx Asthma, Hx Bronchitis, Hx COPD, Hx Pneumonia Neurological Medical History: Denies: Hx Cerebrovascular Accident, Hx Seizures Endocrine Medical History: Denies: Hx Diabetes Mellitus Type 1, Hx Diabetes Mellitus Type 2, Hx Hyperthyroidism, Hx Hypothyroidism Renal/ Medical History: Reports: Hx Kidney Stones. Denies: Hx Peritoneal Dialysis GI Medical History: Denies: Hx Cirrhosis, Hx Gastroesophageal Reflux Disease, Hx Hepatitis Musculoskeletal Medical History: Reports Hx Arthritis Psychiatric Medical History: Denies: Hx Depression Infectious Medical History: Denies: Hx Hepatitis Past Surgical History: Reports: Hx Tubal Ligation, Other - tubal reanastomosis - Immunizations Hx Diphtheria, Pertussis, Tetanus Vaccination: Yes Physical Exam - Vital signs Vitals: Temp Pulse Resp BP Pulse Ox 97.9 F 88 20 148/87 H 96 11/05/20 16:57 11/05/20 16:57 11/05/20 16:57 11/05/20 16:57 11/05/20 16:57 Course - Re-evaluation Re-evalutation: 11/05/20 19:38 Case discussed with attending Dr. Delvalle. CT was read as normal gallbladder. Patient is tolerating oral fluids. The radiologist felt that perhaps there were some mildly dilated loops of bowel on ultrasound the patient began vomiting after eating [place] food, has been moving her bowels, has been tolerating oral fluids here. It is unlikely that she has a bowel obstruction at this time. I did discuss this at length with her. She has her bariatric surgeons at [place] and states she would like to go home and will follow up with them as needed if symptoms worsen. - Vital Signs Vital signs: Temp Pulse Resp BP Pulse Ox 97.9 F 88 20 148/87 H 96 11/05/20 16:57 11/05/20 16:57 11/05/20 16:57 11/05/20 16:57 11/05/20 16:57 - Laboratory Results Result Diagrams: 11/05/20 17:24 11/05/20 17:24 Laboratory Results Interpreted: 11/05/20 11/05/20 11/05/20 17:24 17:24 18:20 RDW 14.7 H Lymph % (Auto) 5.9 L Seg Neutrophils % 87.4 H Glucose 124 H Urine Ketones 20 H Urine Ascorbic Acid 40 H Critical Laboratory Results Reviewed: No Critical Results - Radiology Results Critical Radiology Results Reviewed: Yes Attending or Supervising Physician who Reviewed Radiology: ROSETTA,RICHARD Discharge - Discharge Clinical Impression: Abdominal pain, epigastric Vomiting Qualifiers: Vomiting type: unspecified Vomiting Intractability: non-intractable Nausea presence: with nausea Qualified Code(s): R11.2 - Nausea with vomiting, unspecified Condition: Stable Disposition: HOME, SELF-CARE Additional Instructions: Continue Zofran for nausea, simple diet which may include clear fluids, bananas applesauce rice toast and advance diet as tolerated avoiding greasy or spicy foods. Follow-up with your bariatric surgeons at [place] tomorrow for reevaluation if you develop recurrent vomiting return for reevaluation Prescriptions: Ondansetron [Zofran Odt 4 mg Tablet] 1 - 2 tab PO Q4H PRN #15 tab.rapdis PRN Reason: For Nausea/Vomiting Referrals: AYLA HYDE MD [ASSOCIATE] - Follow up as needed
[2020-11-05 18:46] LABS: APPEARANCE,URINE SLIGHTLY-CLOUDY; BILIRUBIN,URINE NEGATIVE (NEGATIVE); COLOR,URINE AMBER; GLUCOSE, URINE NEGATIVE (NEGATIVE); KETONES,URINE 20 mg/dL (NEGATIVE); LEUKOCYTE ESTERASE,URINE NEGATIVE (NEGATIVE); NITRITE,URINE NEGATIVE (NEGATIVE); PROTEIN,URINE NEGATIVE (NEGATIVE); URINE SPECIFIC GRAVITY 1.028; UROBILINOGEN,URINE NEGATIVE mg/dL (<2.0)
--- NOTE | 2020-11-05 19:14 | RADIOLOGY REPORT (SQ) ---
EXAM DESCRIPTION: U/S ABDOMEN LIMITED W/O DOP IMAGES COMPLETED DATE/TIME: 11/05/2020 6:31 pm REASON FOR STUDY: Epigastric pain radiates to shoulder and back COMPARISON: 09/17/2020 TECHNIQUE: Dynamic and static grayscale images acquired of the abdomen and recorded on PACS. Additio nal selected color Doppler and spectral images recorded. LIMITATIONS: None. FINDINGS: PANCREAS: Obscured by gas. LIVER: Increased echogenicity. No masses. LIVER VASCULATURE: Normal directional flow of the main portal vein and hepatic veins. GALLBLADDER: No stones. Normal wall thickness. No pericholecystic fluid. ULTRASOUND-DETECTED ZIMMER'S SIGN: Negative. INTRAHEPATIC DUCTS AND COMMON DUCT: CBD and intrahepatic ducts normal caliber. No filling defects. AORTA: No aneurysm. RIGHT KIDNEY: Small, 8.7 cm. Normal echogenicity. No solid or suspicious masses. No hydronephrosis. No calcifications. PERITONEAL AND RIGHT PLEURAL SPACE: No ascites or effusions. OTHER: There is some mildly dilated fluid-filled proximal small bowel. IMPRESSION: 1. Hepatic steatosis. 2. Small right kidney. 3. Mildly dilated fluid-filled loops of proximal small bowel. Correlate for bowel obstruction. TECHNICAL DOCUMENTATION: JOB ID: [id number] 2010 [email or web address] All Rights Reserved Reading location - IP/workstation name: [email or web address]
[2020-11-05 19:55] VITALS: BP 141/90
== END 2020-11-05 19:55 | disposition home or self-care (01) ==
LOC: ER 16:49
DX: R10.13 Epigastric pain (principal); R11.2 Nausea with vomiting, unspecified; R19.7 Diarrhea, unspecified; Z79.02 Long term (current) use of antithrombotics/antiplatelets; Z98.84 Bariatric surgery status; Z87.442 Personal history of urinary calculi
CPT/HCPCS: 99285; 96374; 36415; 83690; 84703; 85025; 80053; 81001; 76705; J2405